=== PATIENT | female | born 1985 | race Caucasian/White ===

== ENCOUNTER 2016-08-01 17:36 | Emergency (ER) | payer BC ==
[~2016-08-01] VITALS: Ht 176.5 cm; Wt 122.0 kg
[~2016-08-01 17:36] MED LIST: ALBUAER19 INH
[2016-08-01 17:42] VITALS: TEMP 36.8; Ht 176.5 cm; Wt 122.0 kg
[2016-08-01] MEDS ORDERED: ALBUT/IPRATROP 3MG/0.5MG NEB 3 ML VIAL INH STA (17:55)
--- NOTE | 2016-08-01 18:41 | DIAGNOSTIC IMAGING REPORT ---
TWO VIEW CHEST CLINICAL HISTORY: Cough and asthma. FINDINGS: PA and lateral chest radiographs are compared to chest x-ray and chest CT dated 12/06/2015. The cardiomediastinal silhouette is unremarkable. The lungs and pleural spaces are clear. There is no pneumothorax. The bony thorax appears intact. IMPRESSION: No active disease in the chest. Electronically signed by: Jose Moulton M.D. 08/01/2016 6:39 PM Dictated Date/Time: 08/01/2016 6:39 PM
[2016-08-01 19:24] VITALS: BP 131/89; PULSE 70; O2SAT 97
[2016-08-01] MEDS ORDERED: AZIT250T5 PO (19:24)
[2016-08-01] MEDS ORDERED: PRED50TA PO (19:24)
--- NOTE | 2016-08-01 19:25 | EMERGENCY ROOM VISIT NOTE ---
ED Visit Note First contact with patient: 17:48 CC: Chest tightness and cough today HISTORY OF PRESENT ILLNESS: Patient is a 30-year-old white female with past medical history significant for asthma who presents to the emergency department for evaluation of tightness and her chest and shortness of breath that began today. She says it with a cold and upper respiratory symptoms including cough, sinus and nasal congestion and a sore throat for almost 2-1/2 weeks. She reports sick coworkers and her daughter is also sick at home. She noted that her chest. High and she felt a little short of breath first thing this morning and she used her albuterol inhaler with good relief. She states that her symptoms returned about 4 hours later and this time the inhaler did not help. She thus presented to the emergency department. She reports a cough productive of clear sputum. She is using Mucinex, Tylenol and multisymptom cold and flu medication as well as vitamins and increasing her fluid intake. She reports that her asthma is generally well controlled, typically only gets exacerbated when she becomes ill. She has never been hospitalized for her asthma, has not been on any steroids recently. She is a smoker. She denies any chest pain. No calf or leg pain or swelling. REVIEW OF SYSTEMS: Review of systems as per HPI. All other systems reviewed were negative. At least 6 systems reviewed. PMH: Electronic medical records are reviewed and summarized as above/below. See Problem List. SOCIAL HISTORY: Patient lives at home with her and daughter. Employed. Smoker. PHYSICAL EXAM: Vital Signs: Reviewed Nurse's notes. Oxygen saturation 99% on room air. MENTAL STATUS: Patient is a well-appearing 30-year-old white female who is awake and alert and in no acute distress. She is seated upright on the gurney. No conversational dyspnea. No increased work of breathing. HEAD: Atraumatic, without temporal or scalp tenderness. EYES: PERRL, EOMI, no discharge or injection. EARS: Tympanic membranes intact, not inflamed, have normal contour. External canals clear. NOSE: Nares patent, turbinates edematous and boggy with clear rhinorrhea. MOUTH: Mucous membranes moist, no lesions, tongue and gums appear normal. THROAT: No pharyngeal injection, exudates, or tonsillar hypertrophy. Airway is patent. NECK: Supple, nontender, no lymphadenopathy. No stridor. HEART: Regular rate and rhythm without murmurs, ectopy, gallops, or rubs. LUNGS: Clear to auscultation and breath sounds equal, no wheezes, rales, or rhonchi. SKIN: Normal. NEUROLOGICAL: Sensory and motor functions grossly intact. Normal gait. EMERGENCY DEPARTMENT COURSE: Patient was given a DuoNeb treatment and prednisone 60 mg orally. Chest x-ray was obtained and was unremarkable. The patient was reassessed and reported that her symptoms had improved with the nebulizer treatment. She has been sick with some upper respiratory symptoms for almost 3 weeks, and now has some objective tightness in her chest. On exam she does not have any increased work of breathing, respiratory distress or wheezing. Vital signs are stable and her oxygen saturation on room air is adequate. She may be experiencing some slight bronchospasm due to the URI and an asthma exacerbation. She is responding nicely to the DuoNeb. Continued supportive care measures were discussed. Given the duration of the illness, I did think antibiotic coverage was indicated and she was given azithromycin 500 mg orally. She was placed in a short course of oral prednisone as well. She is encouraged to continue her inhaler, and to return to the ED for worsening symptoms. Follow up with her PCP if her symptoms are not improving. Differential diagnoses entertained included asthma exacerbation, asthmatic bronchitis, acute bronchitis, pneumonia. I do not suspect pulmonary embolus. TWO VIEW CHEST CLINICAL HISTORY: Cough and asthma. FINDINGS: PA and lateral chest radiographs are compared to chest x-ray and chest CT dated 12/06/2015. The cardiomediastinal silhouette is unremarkable. The lungs and pleural spaces are clear. There is no pneumothorax. The bony thorax appears intact. IMPRESSION: No active disease in the chest. Problem List Medical Problems: (1) Active labor at term Status: Resolved (2) Asthma Status: Chronic (3) Bronchitis Status: Resolved (4) Pneumonia Status: Resolved (5) Status: Resolved (6) Status: Resolved (7) Stomach problems Status: Chronic (8) Subchorionic bleed Status: Resolved (9) Vaginal bleeding in Status: Resolved Current/Historical Medications Scheduled Azithromycin (Zithromax), 250 MG PO DAILY Medroxyprogesterone Acetate (C (Depo-Provera Contraceptiv), 1 DOSE INJ UD Prednisone (Prednisone), 50 MG PO DAILY Scheduled PRN Albuterol Inhaler (Ventolin Inhaler), 2 PUFFS INH UD PRN for Rescue Allergies Coded Allergies: BEE STING (Verified Allergy, Severe, ANAPHYLAXIS, 08/01/16) Cinnamon (Unverified Allergy, Severe, THROAT SWELLING, 08/01/16) Fexofenadine (Verified Allergy, Mild, 08/01/16) Penicillins (Verified Allergy, Mild, 08/01/16) Pseudoephedrine (Verified Allergy, Unknown, ., 08/01/16) Vital Signs Date Time Temp Pulse Resp B/P Pulse Ox O2 Delivery O2 Flow Rate FiO2 08/01/16 19:24 70 16 131/89 97 Room Air 08/01/16 17:42 99 Room Air 08/01/16 17:42 36.8 74 18 139/94 99 Room Air Medications Administered Medications (Trade) Dose Ordered Sig/Bry Route Start Time Stop Time Status Last Admin Dose Admin Albuterol/ Ipratropium (Duoneb) 3 ml NOW STAT INH 08/01/16 17:55 08/01/16 17:57 DC 08/01/16 18:01 3 ML Prednisone (PredniSONE TAB) 60 mg NOW STAT PO 08/01/16 17:55 08/01/16 17:57 DC 08/01/16 18:01 60 MG Azithromycin (Zithromax Tab) 500 mg NOW ONCE PO 08/01/16 19:30 08/01/16 19:31 DC 08/01/16 19:30 500 MG Departure Information Impression Primary Impression: Acute bronchitis Additional Impression: Acute asthma exacerbation Prescriptions Prednisone (Prednisone) 50 Mg Tab 50 MG PO DAILY for 4 Days, #4 TAB Prov: Jyoti Dwyer PA 08/01/16 Azithromycin (ZITHROMAX) 250 Mg Tab 250 MG PO DAILY, #4 TAB Prov: Jyoti Dwyer PA 08/01/16 Referrals Andrew Max MD (PCP) Patient Instructions My [facility] Additional Instructions Albuterol Inhaler: Take 2 puffs every 4 hours for five days, then as needed. Prednisone 50mg: Once daily until the prescription is finished. It is best to take this earlier in the day as some patients note occasional difficulty falling asleep when taken in the late evening. Azithromycin(Zithromax) 250mg: Take one a day for 4 additional days. All antibiotics can cause diarrhea. If this occurs and you feel worse or it does not resolve in 1- 2 days follow up with your doctor or return to the Emergency Department as this could be signs of serious underlying problems. Any medication can cause an allergic reaction, stop the pills immediately and return to the ER for rash, hives, breathing difficulties, or swelling. Ibuprofen(Motrin, Advil) may be used for fever or pain. Use 600mg every six hours as needed. Take with food. Avoid using more than 2400mg in a 24 hour period. Do not use 2400mg per day for more than three consecutive days without physician direction. Prolonged inappropriate use can lead to stomach upset or ulcers. This is available over the counter and typically comes in 200mg tablets. (AND/OR) Acetaminophen(Tylenol) may be used for fever or pain. Use 1000mg every eight hours as needed. Avoid using more than 3000mg in a 24 hour period. This is available over the counter. Read all the package inserts or medication information paperwork provided. If you have any questions or concerns call your primary provider, pharmacist or the ER for assistance. Rest and drink plenty of fluids. Avoid smoke/smoking, fumes, dust, or any triggers in the past that may have affected your breathing. Continue current medications. Return to the ER for chest pain, difficulty breathing, fevers, vomiting, worsening of your condition, or as needed. Follow up with your primary physician this week for a recheck of your current condition. Problem Qualifiers Primary Impression: Acute bronchitis Bronchitis organism: unspecified organism Qualified Codes: J20.9 - Acute bronchitis, unspecified Additional Impression: Acute asthma exacerbation Asthma severity: mild intermittent Qualified Codes: J45.21 - Mild intermittent asthma with (acute) exacerbation
[2016-08-01] MEDS ORDERED: AZITHROMYCIN 250 MG TAB PO ONE (19:30)
== END 2016-08-01 19:35 | disposition home or self-care (01) ==
LOC: C.EDB 17:37 → C.EDD 19:35
DX: J20.9 Acute bronchitis, unspecified (principal); J45.21 Mild intermittent asthma with (acute) exacerbation; F17.210 Nicotine dependence, cigarettes, uncomplicated

== ENCOUNTER 2017-01-20 19:56 | Emergency (ER) | payer BC ==
[~2017-01-20] VITALS: Ht 175.3 cm; Wt 130.0 kg
[2017-01-20 19:59] VITALS: Ht 175.3 cm; Wt 130.0 kg
[2017-01-20] MEDS ORDERED: KETOROLAC TROMETHAMINE 60 MG/2 ML VIAL IM STA (20:23)
[2017-01-20] MEDS ORDERED: HYDROCODONE/ACETAMOPHEN 5/325MG TAB PO ONE (20:30)
[2017-01-20] MEDS ORDERED: DEXAMETHASONE SOD INJ 10 MG/ML VIAL IM ONE (20:30)
[2017-01-20] MEDS ORDERED: MULT-240 PO (20:46)
[2017-01-20] MEDS ORDERED: PRVHFAIN INH (20:46)
--- NOTE | 2017-01-20 21:02 | DIAGNOSTIC IMAGING REPORT ---
L-SPINE MIN 4 VIEWS ROUTINE HISTORY: Pain low back pain COMPARISON: None. FINDINGS: There is no fracture. No subluxation. Disc spaces are preserved. Note is made of sclerotic changes of the inferior sacroiliac joints possibly on the basis of chronic sacroiliitis. IMPRESSION: 1. Degenerative change sacroiliac joints. 2. No acute abnormality lumbar spine The above report was generated using voice recognition software. It may contain grammatical, syntax or spelling errors. Electronically signed by: Bert Browning M.D. 01/20/2017 9:01 PM Dictated Date/Time: 01/20/2017 9:00 PM
[2017-01-20] MEDS ORDERED: MEDR150I IM (21:03)
[2017-01-20] MEDS ORDERED: NORCO 5/325MG HOME PACK PO ONE (21:15)
[2017-01-20 21:30] VITALS: BP 114/71; PULSE 88; TEMP 37; O2SAT 97
--- NOTE | 2017-01-21 00:09 | EMERGENCY ROOM VISIT NOTE ---
ED Visit Note First contact with patient: 20:09 CHIEF COMPLAINT: Low back pain HISTORY OF PRESENT ILLNESS: This 31-year-old female patient presents to the emergency department complaining of pain in the low back which began worsening about 5 hours prior to arrival. The patient states that she was playing outside with her daughter today, laid down on the couch to rest, and when she got up had pain in her low back. The pain was gradual in onset, is now constant and worse with movement. The patient notes the pain as dull and a 6/ 10. The patient has taken nothing for relief of the pain. The patient denies any loss of control of their bowel or bladder functions. There has been no leg numbness or weakness, and no change in sensation. No nausea or vomiting or abdominal pain. No chest pain or shortness of breath. The patient has not had prior back injuries. No dysuria or increased urinary frequency. REVIEW OF SYSTEMS: A review of systems was performed with positives and pertinent negatives listed in the history of present illness. All other systems were reviewed and are negative. ALLERGIES: See EMR MEDICATIONS: See EMR PMH: No pertinent chronic medical disease SOCIAL HISTORY: Lives with family PHYSICAL EXAM: VITALS: Vitals are noted on the nurse's note and reviewed by myself. Vital signs stable. GENERAL: White female, in no acute distress, nondiaphoretic, well-developed well -nourished. SKIN: The skin was without rashes, erythema, edema, or bruising. Capillary refill less than 2 seconds. NECK: Supple without nuchal rigidity. No cervical spine tenderness. No paraspinous muscle tenderness. HEART: Regular rate and rhythm without murmurs gallops or rubs. LUNGS: Clear to auscultation bilaterally without wheezes, rales or rhonchi. ABDOMEN: Positive bowel sounds x 4. Normal tympanic percussion. Soft, nontender, without masses or organomegaly. Rockwell sign negative. MUSCULOSKELETAL: No muscle atrophy, erythema, or edema noted of the back. There is tenderness over the lumbar spinous processes. There is no tenderness over the paraspinous muscles. There is no tenderness over the thoracic spine or paraspinous muscles. There are no muscle spasms present. The patient is slow to move around with maximum tenderness with flexion. Positive bilateral straight leg raise test. NEURO: Patient was alert and oriented to person place and time. Normal sensation to light and sharp touch. Deep tendon reflexes 2+ in the lower extremities. Dorsalis pedis pulse 2+ bilaterally. Strength 5/5 and equal in the bilateral lower extremities. L-SPINE MIN 4 VIEWS ROUTINE HISTORY: Pain low back pain COMPARISON: None. FINDINGS: There is no fracture. No subluxation. Disc spaces are preserved. Note is made of sclerotic changes of the inferior sacroiliac joints possibly on the basis of chronic sacroiliitis. IMPRESSION: 1. Degenerative change sacroiliac joints. 2. No acute abnormality lumbar spine EMERGENCY DEPARTMENT COURSE: Physical exam and history were performed. Nursing notes and EMR were reviewed. The patient appears to have low back pain for the past few hours. She does not have a distinct injury or trauma. Neurologically she is intact. The patient was treated here in the department with 60 mg IM Toradol and 10 mg IM Decadron. She was given oral Vicodin. X-rays were performed and reviewed by myself and radiology without acute fractures or dislocation. She appears to have some chronic sacroiliitis. The patient will be given a home pack of Vicodin. She is to use [id number] NSAIDs and follow-up with her primary care physician for further care and management. She was otherwise invited back to the ER with any new, worsening, or concerning complaints. Problem List Medical Problems: (1) Active labor at term Status: Resolved (2) Asthma Status: Chronic (3) Bronchitis Status: Resolved (4) Pneumonia Status: Resolved (5) Status: Resolved (6) Status: Resolved (7) Stomach problems Status: Chronic (8) Subchorionic bleed Status: Resolved (9) Vaginal bleeding in Status: Resolved Current/Historical Medications Scheduled Medroxyprogesterone Acetate (C (Depo-Provera Contraceptiv), 150 MG IM Q3 MONTHS Multiple Vitamins W/ Minerals (Womens One Daily), 1 TAB PO DAILY Scheduled PRN Albuterol (Ventolin Hfa), 2 PUFFS INH UD PRN for Asthma Symptoms/Rescue Allergies Coded Allergies: BEE STING (Verified Allergy, Severe, ANAPHYLAXIS, 08/01/16) Cinnamon (Unverified Allergy, Severe, THROAT SWELLING, 08/01/16) Fexofenadine (Verified Allergy, Mild, 08/01/16) Penicillins (Verified Allergy, Mild, 08/01/16) Pseudoephedrine (Verified Allergy, Unknown, ., 1/23/17) Vital Signs Date Time Temp Pulse Resp B/P (MAP) Pulse Ox O2 Delivery O2 Flow Rate FiO2 01/20/17 21:30 37.0 88 20 114/71 97 01/20/17 21:29 88 20 114/71 97 Room Air 01/20/17 19:59 37.0 93 20 118/76 97 Room Air Medications Administered Medications (Trade) Dose Ordered Sig/Bry Route Start Time Stop Time Status Last Admin Dose Admin Dexamethasone Sodium Phosphate (Decadron Inj) 10 mg NOW ONCE IM 01/20/17 20:30 01/20/17 20:31 DC 01/20/17 20:37 10 MG Ketorolac Tromethamine (Toradol Inj) 60 mg NOW STAT IM 01/20/17 20:23 01/20/17 20:24 DC 01/20/17 20:37 60 MG Acetaminophen/ Hydrocodone Bitart ([place] 5/325 Tab) 1 tab NOW ONCE PO 01/20/17 20:30 01/20/17 20:31 DC 01/20/17 20:36 1 TAB Acetaminophen/ Hydrocodone Bitart ([place] 5/325mg Home Pack) 1 homepack UD ONCE PO 01/20/17 21:15 01/20/17 21:16 DC 01/20/17 21:25 1 HOMEPACK Departure Information Impression Primary Impression: Low back pain Dispostion Home / Self-Care Condition GOOD Forms HOME CARE DOCUMENTATION FORM, IMPORTANT VISIT INFORMATION Patient Instructions My [facility] Additional Instructions You were seen and evaluated today on an emergency basis only. This is not a substitute for, or an effort to provide, complete comprehensive medical care. It is not possible to recognize and treat all injuries or illnesses in a single emergency department visit. For this reason it is recommended that you followup with your primary care physician next week for ongoing care and evaluation. For baseline pain relief you may alternate ibuprofen and acetaminophen every 4 hours for pain control. Take 600 mg ibuprofen (Advil) and then 4 hours later take 1000 mg acetaminophen (Tylenol). Do not take more than 3000 mg acetaminophen in a single day. [place] (hydrocodone/acetaminophen) 5/325 mg (homepack) every 6 hours as needed for worsening breakthrough pain. Do not drink or drive on [place]. This medication will likely make you tired. Do not take [place] and Tylenol at the same time as both contain acetaminophen. [place] may cause constipation. You may wish to take an [id number] stool softener like Colace if this occurs. You are welcome to return to the emergency department anytime with new, worsening, or concerning symptoms.
== END 2017-01-20 21:30 | disposition home or self-care (01) ==
LOC: C.EDB 19:58 → C.EDD 21:30
DX: M54.5 Low back pain (principal); J45.909 Unspecified asthma, uncomplicated; Z87.01 Personal history of pneumonia (recurrent); Z87.09 Personal history of other diseases of the respiratory system

== ENCOUNTER 2017-09-17 20:01 | Emergency (ER) | payer OTHER ==
[~2017-09-17] VITALS: Ht 177.8 cm; Wt 124.4 kg
[~2017-09-17 20:01] MED LIST changes: -ALBUAER19 INH; +METH4PAK PO
[2017-09-17 20:04] VITALS: TEMP 36.8; Ht 177.8 cm; Wt 124.4 kg
[2017-09-17] MEDS ORDERED: FAMOTIDINE 20MG/5ML IV PUSH IV STA (20:43)
[2017-09-17] MEDS ORDERED: SODIUM CHLORIDE 0.9% 1000ML 1,000 ML IV STA (20:43)
[2017-09-17] MEDS ORDERED: ONDANSETRON INJ 2 MG/ML 2 ML VIAL IV STA (20:43)
[2017-09-17] MEDS ORDERED: MULT-240 PO (20:46)
[2017-09-17] MEDS ORDERED: PRVHFAIN INH (20:46)
--- NOTE | 2017-09-17 20:46 | EMERGENCY ROOM VISIT NOTE ---
History Report prepared by Mihai: Kendall Mccann Under the Supervision of: Flor MossO. First contact with patient: 20:22 Chief Complaint: ILLNESS Stated Complaint: SWOLLEN THROAT,WHEEZING,VOMITING,FEVER History of Present Illness The patient is a 32 year old female who presents to the Emergency Room with complaints of general illness beginning 4 days ago. The patient reports having a cough for several days which developed into vomiting, fever, chills, diarrhea , and a headache on . The patient denies experiencing any diarrhea since yesterday. She is still experiencing fevers, chills, mild nausea, and a sore throat which tastes metallic. The patient denies feeling dizzy or lightheaded, seeing blood in her vomit or in her stool, experiencing difficulty urinating, or experiencing any rashes or sores. 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 She states that she took Tylenol to manage her fever and other symptoms. Source of History: patient Onset: 4 days ago Position: other (global ) Quality: other (illness) Timing: other (Some symptoms improving, others constant ) Associated Symptoms: + fevers, + headache, + sorethroat (metallic taste), + cough, + nausea, + vomiting, + diarrhea (none since yesterday), No rash Review of Systems See HPI for pertinent positives & negatives. A total of 10 systems reviewed and were otherwise negative. Past Medical & Surgical Medical Problems: (1) Active labor at term (2) Asthma (3) Bronchitis (4) Pneumonia (5) (6) (7) Stomach problems (8) Subchorionic bleed (9) Vaginal bleeding in Surgical Problems: (1) No pertinent past surgical history Family History Cancer Kidney disease Kidney stones Social History Smoking Status: Current Every Day Smoker Alcohol Use: none Marital Status: Housing Status: lives with family Occupation Status: employed Current/Historical Medications Scheduled Medroxyprogesterone Acetate (C (Depo-Provera Contraceptiv), 150 MG IM Q3 MONTHS Multiple Vitamins W/ Minerals (Womens One Daily), 1 TAB PO DAILY Scheduled PRN Albuterol (Ventolin Hfa), 2 PUFFS INH UD PRN for Asthma Symptoms/Rescue Allergies Coded Allergies: BEE STING (Verified Allergy, Severe, ANAPHYLAXIS, 08/01/16) Cinnamon (Unverified Allergy, Severe, THROAT SWELLING, 08/01/16) Fexofenadine (Verified Allergy, Mild, 08/01/16) Penicillins (Verified Allergy, Mild, 08/01/16) Pseudoephedrine (Verified Allergy, Unknown, ., 08/01/16) Physical Exam Vital Signs Date Time Temp Pulse Resp B/P (MAP) Pulse Ox O2 Delivery O2 Flow Rate FiO2 09/17/17 23:55 80 18 117/85 96 09/17/17 22:44 82 18 124/81 98 Room Air 09/17/17 20:04 36.8 91 20 138/95 97 Room Air Physical Exam GENERAL: alert, ill-appearing, well nourished, no distress, non-toxic EYE EXAM: normal conjunctiva, PERRL and EOM's grossly intact OROPHARYNX: no exudate, no erythema, lips, buccal mucosa, and tongue normal and mucous membranes are DRY NECK: supple, no nuchal rigidity, no adenopathy, non-tender LUNGS: Clear to auscultation. Normal chest wall mechanics HEART: no murmurs, S1 normal and S2 normal ABDOMEN: abdomen soft, non-tender, normo-active bowel sounds, no masses, no rebound or guarding. BACK: Back is symmetrical on inspection and there is no deformity, no midline tenderness, no CVA tenderness. SKIN: no rashes and no bruising UPPER EXTREMITIES: upper extremities are grossly normal. LOWER EXTREMITIES: No pitting edema. NEURO EXAM: Normal sensorium, cranial nerves II-XII [grossly] intact, normal speech, no [gross] weakness of arms, no [gross] weakness of legs. [No drift. Finger to nose intact. Gross sensation intact.] Medical Decision & Procedures Laboratory Results 09/17/17 20:58 Red Blood Count 4.43, Mean Corpuscular Volume 94.1, Mean Corpuscular Hemoglobin 33.4, Mean Corpuscular Hemoglobin Concent 35.5, Mean Platelet Volume 9.9, Neutrophils (%) (Auto) 49.2, Lymphocytes (%) (Auto) 42.1, Monocytes (%) (Auto) 7.0, Eosinophils (%) (Auto) 1.2, Basophils (%) (Auto) 0.4, Neutrophils # (Auto) 4.71, Lymphocytes # (Auto) 4.02, Monocytes # (Auto) 0.67, Eosinophils # (Auto) 0.11, Basophils # (Auto) 0.04 09/17/17 20:58 Test 09/17/17 20:58 09/17/17 21:09 White Blood Count 9.56 K/uL (4.8-10.8) Red Blood Count 4.43 M/uL (4.2-5.4) Hemoglobin 14.8 g/dL (12.0-16.0) Hematocrit 41.7 % (37-47) Mean Corpuscular Volume 94.1 fL (80-100) Mean Corpuscular Hemoglobin 33.4 pg (25-34) Mean Corpuscular Hemoglobin Concent 35.5 g/dl (32-36) Platelet Count 309 K/uL (130-400) Mean Platelet Volume 9.9 fL (7.4-10.4) Neutrophils (%) (Auto) 49.2 % Lymphocytes (%) (Auto) 42.1 % Monocytes (%) (Auto) 7.0 % Eosinophils (%) (Auto) 1.2 % Basophils (%) (Auto) 0.4 % Neutrophils # (Auto) 4.71 K/uL (1.4-6.5) Lymphocytes # (Auto) 4.02 K/uL (1.2-3.4) Monocytes # (Auto) 0.67 K/uL (0.11-0.59) Eosinophils # (Auto) 0.11 K/uL (0-0.5) Basophils # (Auto) 0.04 K/uL (0-0.2) RDW Standard Deviation 42.6 fL (36.4-46.3) RDW Coefficient of Variation 12.4 % (11.5-14.5) Immature Granulocyte % (Auto) 0.1 % Immature Granulocyte # (Auto) 0.01 K/uL (0.00-0.02) Anion Gap 9.0 mmol/L (3-11) Est Creatinine Clear Calc Drug Dose 115.8 ml/min Estimated GFR () 86.3 Estimated GFR (Non- 74.5 BUN/Creatinine Ratio 14.4 (10-20) Calcium Level 9.4 mg/dl (8.5-10.1) Magnesium Level 2.1 mg/dl (1.8-2.4) Total Bilirubin 0.2 mg/dl (0.2-1) Aspartate Amino Transf (AST/SGOT) 17 U/L (15-37) Alanine Aminotransferase (ALT/SGPT) 26 U/L (12-78) Alkaline Phosphatase 89 U/L (45-117) Total Protein 7.8 gm/dl (6.4-8.2) Albumin 3.9 gm/dl (3.4-5.0) Globulin 3.9 gm/dl (2.5-4.0) Albumin/Globulin Ratio 1.0 (0.9-2) Lipase 105 U/L (73-393) Human Chorionic Gonadotropin, Qual NEG (NEG) Influenza Type A Antigen Neg for Influ A (NEG) Influenza Type B Antigen Neg for Influ B (NEG) Laboratory results per my review. Medications Administered Medications (Trade) Dose Ordered Sig/Bry Route Start Time Stop Time Status Last Admin Dose Admin Sodium Chloride 1,000 ml @ 999 mls/hr Q1H1M STAT IV 09/17/17 20:43 09/17/17 21:43 DC 09/17/17 21:06 999 MLS/HR Ondansetron HCl (Zofran Inj) 4 mg NOW STAT IV 09/17/17 20:43 09/17/17 20:45 DC 09/17/17 21:05 4 MG Famotidine (Pepcid 20mg Iv Push) 20 mg ONE STAT IV 09/17/17 20:43 09/17/17 20:45 DC 09/17/17 21:04 20 MG Al Hydroxide/Mg Hydroxide (Maalox Susp) 30 ml STK-MED ONCE .ROUTE 09/17/17 22:56 09/17/17 22:57 DC 09/17/17 22:59 30 ML Lidocaine HCl (Viscous Lidocaine 2% Soln) 20 ml STK-MED ONCE .ROUTE 09/17/17 22:56 09/17/17 22:57 DC 09/17/17 22:59 10 ML Ondansetron HCl (ZOFRAN ODT 4MG Home Pack) 1 homepack UD ONCE PO 09/17/17 23:45 09/17/17 23:46 DC 09/17/17 23:52 1 HOMEPACK ECG Per My Interpretation Indication: other (Electrolyte Abnormalities) Rate (beats per minute): 73 Rhythm: normal sinus Findings: no acute ischemic change, no ectopy, other (Normal axis, normal intervals ) ED Course 2038: The patient was evaluated in room B5. A complete history and physical exam was performed. 2042: Ordered Famotidine 20 mg IV, Zofran Inj 4mg IV, and Sodium Chloride 1000 ml @ 999 mls/hr IV. 2144: I reevaluated the patient. She is feeling better and will be discharged after she is finished with her IV liter bag. 2241: Ordered GI Cocktail 24ml PO 2256: Ordered Lidocaine HCL 20ml and Maalox Susp 30ml 2311: I re-evaluated the patient. She feels much better after GI Cocktail. Upon reevaluation, the patient is feeling better. I discussed the findings and the treatment plan with the patient. She verbalizes agreement and understanding. She was discharged home. 5: Ordered Ondansetron HCL 1 homepack PO Medical Decision Differential diagnosis: Etiologies such as viral syndrome, otitis, pharyngitis, pneumonia, influenza, meningitis, urinary tract infection, sepsis, bacteremia, as well as others were entertained. Patient well-appearing here despite complaints, vital signs stable. Patient felt improved following IV fluids and medications as able to tolerate p.o. without any residual pain. Patient never had difficulty breathing or stridor, believe her symptoms of sore throat metallic taste are likely due to GERD-like symptoms from recurrent vomiting recently. Patient's labs and imaging otherwise reassuring, and vital signs stable throughout. Patient did not have any recurrent vomiting or diarrhea here. No apparent trouble breathing and patient never hypoxic. No physical exam findings to suggest strep throat given complaints of pain. Doubt bacteremia/sepsis. Likely patient with viral syndrome given exposures at daycare. Patient otherwise not appear compromised and I feel the risk for additional occult infectious etiology. Discussed with patient symptoms to watch and return for, and patient given Zofran to go home with. Patient verbalized understanding all this and was agreeable with plan. Medication Reconcilliation Current Medication List: was personally reviewed by me Blood Pressure Screening Patient's blood pressure: Elevated blood pressure Blood pressure disposition: Elevated BP felt to be situational Impression Primary Impression: Dehydration Additional Impressions: Nausea and vomiting Diarrhea URI (upper respiratory infection) Scribe Attestation The scribe's documentation has been prepared under my direction and personally reviewed by me in its entirety. I confirm that the note above accurately reflects all work, treatment, procedures, and medical decision making performed by me. Departure Information Dispostion Home / Self-Care Referrals Andrew Max MD (PCP) Forms HOME CARE DOCUMENTATION FORM, IMPORTANT VISIT INFORMATION, WORK / SCHOOL INSTRUCTIONS Patient Instructions My [facility] Additional Instructions Please sip clear liquids and frequent intervals to stay well-hydrated. You may use the nausea medication as needed. If you have any worsening symptoms or new concerns, please return the emergency room. Problem Qualifiers Additional Impressions: Nausea and vomiting Vomiting type: unspecified Vomiting Intractability: non-intractable Qualified Codes: R11.2 - Nausea with vomiting, unspecified Diarrhea Diarrhea type: unspecified type Qualified Codes: R19.7 - Diarrhea, unspecified URI (upper respiratory infection) URI type: unspecified URI Qualified Codes: J06.9 - Acute upper respiratory infection, unspecified
[2017-09-17] MEDS ORDERED: MEDR150I IM (21:03)
[2017-09-17 21:12] LABS: BASO % 0.4 %; BASO ABS # 0.04 K/uL (0-0.2); EOS % 1.2 %; EOS ABS # 0.11 K/uL (0-0.5); HEMATOCRIT 41.7 % (37-47); HEMOGLOBIN 14.8 g/dL (12.0-16.0); IG# 0.01 K/uL (0.00-0.02); LYMPH % 42.1 %; LYMPH ABS # 4.02 K/uL (1.2-3.4); MEAN CELL VOLUME 94.1 fL (80-100); MEAN CORPUSCULAR HEMOGLOBIN 33.4 pg (25-34); MEAN CORPUSCULAR HGB CONC 35.5 g/dl (32-36); MEAN PLATELET VOLUME 9.9 fL (7.4-10.4); MONO ABS # 0.67 K/uL (0.11-0.59); NEUT % 49.2 %; NEUT ABS # 4.71 K/uL (1.4-6.5); PLATELET COUNT 309 K/uL (130-400); RED CELL DISTRIBUTION WIDTH CV 12.4 % (11.5-14.5); RED CELL DISTRIBUTION WIDTH SD 42.6 fL (36.4-46.3); WHITE BLOOD COUNT 9.56 K/uL (4.8-10.8)
[2017-09-17 21:28] LABS: ALBUMIN 3.9 gm/dl (3.4-5.0); CALCIUM 9.4 mg/dl (8.5-10.1); POTASSIUM 3.6 mmol/L (3.5-5.1)
[2017-09-17 21:31] LABS: TOTAL PROTEIN 7.8 gm/dl (6.4-8.2)
--- NOTE | 2017-09-17 21:34 | DIAGNOSTIC IMAGING REPORT ---
ABDOMEN 2VIEW W/PA CHEST RTN CLINICAL HISTORY: Nausea, vomiting, diarrhea COMPARISON STUDY: 06/09/2017 FINDINGS: The erect chest reveals no evidence of free air. There is no evidence of focal pulmonary consolidation.] Erect and supine views of the abdomen reveal no abnormally dilated loops of large or small bowel. There are no transition zone to indicate bowel obstruction. Sclerotic changes are present within the SI joints. IMPRESSION: No evidence of bowel obstruction. No evidence of free air. Electronically signed by: Herve Colindres M.D. 09/17/2017 9:33 PM Dictated Date/Time: 09/17/2017 9:32 PM
[2017-09-17 21:57] LABS: INFLUENZA B ANTIGEN Neg for Influ B (NEG)
[2017-09-17] MEDS ORDERED: GI COCKTAIL PO STA (22:42)
[2017-09-17] MEDS ORDERED: LIDOCAINE HCL 2% VISC SOLN 20 ML UDC ONE (22:56)
[2017-09-17] MEDS ORDERED: ALUMINUM/MAGNESIUM SUSP 30 ML UDC ONE (22:56)
[2017-09-17] MEDS ORDERED: ONDANSETRON HOME PACK 4MG OD TAB PO ONE (23:45)
[2017-09-17 23:55] VITALS: BP 117/85; PULSE 80; O2SAT 96
== END 2017-09-17 23:55 | disposition home or self-care (01) ==
LOC: C.EDB 20:02
DX: E86.0 Dehydration (principal); R11.2 Nausea with vomiting, unspecified; R19.7 Diarrhea, unspecified; J06.9 Acute upper respiratory infection, unspecified; J45.909 Unspecified asthma, uncomplicated; F17.200 Nicotine dependence, unspecified, uncomplicated; Z79.3 Long term (current) use of hormonal contraceptives; Z88.1 Allergy status to other antibiotic agents; Z91.018 Allergy to other foods; Z91.030 Bee allergy status; Z88.8 Allergy status to other drugs, medicaments and biological substances

== ENCOUNTER 2023-10-18 00:40 | Observation (INO) ==
[2023-10-18 02:04] LABS: Appearance Urine Clear (Clear); Bilirubin Urine Negative (Negative); Blood Urine Negative (Negative); Color Urine Yellow; Glucose Urine UA Negative (Negative); Ketones Urine 2+ (Negative); Leukocyte Esterase Urine Negative (Negative); Nitrite Urine Negative (Negative); Protein Urine Negative (Negative); Specific Gravity Urine 1.009 (1.000-1.030); Urobilinogen Urine Negative (Negative); pH Urine 5.5 (4.5-7.5)
[2023-10-18 02:09] LABS: Albumin Globulin Ratio 1.6 (0.9-2); Albumin Level 4.9 gm/dl (3.4-5.0); BUN Creatinine Ratio 14.6 (10-20); Bilirubin,Total 0.7 mg/dl (0.2-1.0); Calcium 9.7 mg/dl (8.6-10.3); Creatinine Clr Calc Pharmacy 131.9 ml/min; Est GFR (African American) 105.2 ml/min; Est GFR (Non-African American) 90.8 ml/min; Globulin 3.1 gm/dl (2.5-4.0); Potassium 3.6 mmol/L (3.5-5.1)
[2023-10-18 02:10] LABS: Basophils # (auto) 0.07 K/uL (0.00-0.20); Basophils % (auto) 0.6 %; Eosinophils # (auto) 0.09 K/uL (0.00-0.50); Eosinophils % (auto) 0.7 %; Hematocrit (blood only) 43.4 % (37.0-47.0); Hemoglobin 15.2 g/dl (12.0-16.0); Immature Granulocytes # (auto) 0.05 K/uL (0.01-0.20); Immature Granulocytes % (auto) 0.4 %; Lymphocytes # (auto) 3.12 K/uL (1.20-3.40); Lymphocytes % (auto) 24.5 %; Mean Corpuscular Hemoglobin 32.3 pg (25.0-34.0); Mean Corpuscular Volume 92.1 fL (80.0-100.0); Mean Platelet Volume 9.9 fL (9.4-12.4); Monocytes # (auto) 1.11 K/uL (0.11-0.59); Monocytes % (auto) 8.7 %; Neutrophils # (auto) 8.27 K/uL (1.40-6.50); Neutrophils % (auto) 65.1 %; Platelet Count 354 K/uL (130-400); RDW Standard Deviation 40.8 fL (36.4-46.3); Red Blood Count 4.71 M/uL (4.20-5.40); White Blood Count 12.71 K/ul (4.8-10.8)
[2023-10-18 02:22] LABS: Pregnancy Test, Serum Negative (Negative)
--- NOTE | 2023-10-18 05:08 | Ultrasound Report ---
Exam(s): US GALLBLADDER EXAM: US Abdomen Limited, Gallbladder CLINICAL HISTORY: Reason for exam: RUQ pain. TECHNIQUE: Real-time ultrasound of the right upper quadrant with image documentation. COMPARISON: No relevant prior studies available. FINDINGS: Liver: Fatty liver. Gallbladder: There are multiple gallstones. Gallbladder wall thickness measures 3.8 mm. Positive ultrasound Rockwell sign. Common bile duct: CBD caliber measures up to 9.3 mm in diameter. Pancreas: No pancreatic ductal dilation Right kidney measures 11.5 cm in length. IMPRESSION: 1. Cholelithiasis with gallbladder wall thickening and positive ultrasound Rockwell sign. These findings are suggestive of acute cholecystitis. 2. Prominent CBD caliber which can be further assessed on MRCP study Electronically signed by: Ronnie Choi MD 10/18/23 05:07 AM
--- NOTE | 2023-10-18 07:54 | Emergency Department Note ---
Impression & Plan Acute calculous cholecystitis ED Provider Note NAME: NAVEEN CROWELL AGE: 38 SEX: Female INFORMANT: Patient ED PROVIDER(S): Salvador Young MD CHIEF COMPLAINT: abdominal pain PLAN: Disposition: admitted Outpatient prescription management: none Referral: none MEDICAL DECISION MAKING: Presented with HPI below. RUQ pain. Declined analgesia. Leukocytosis on CBC. Imaging consistent with cholecystitis. Discussed with patient. I gave my usual and customary discussion regarding this issue. Consulted with General Surgery. Patient evaluated by Ayse Bueno PA-C and admitted for further management. Care/management discussed with: none Level of care consideration(s): After review of the information above and other included data, I feel the patient requires escalation of care to admission. Triage Nursing notes: reviewed and agree them. Vital Signs: reviewed and remarkable for no significant abnormalities Additional History obtained from: none Chronic Medical/Social Conditions affecting care: none Prior/ Outside/ External records reviewed: none Differential Diagnosis: Etiologies such as gastroenteritis, food borne illness, infections, appendicitis, diverticulitis, inflammatory bowel disease, GI bleed, biliary pathology, as well as others were entertained. Diagnostics, independently interpreted by me: ECG: none Cardiac Monitoring: none Medical decision rules: none Imaging studies: I refer you to the EMR for further details. HPI: 38 year old Female arrives for evaluation of abdominal pain. This started 3 days ago and is persisting. The patient also notes the following associated symptoms, slight fever. The patient has found no relieving factors. Current pain is rated as 4/10. Pt denies LOC, headache, fevers, chills, diaphoresis, visual changes, neck pain, chest pain, breathing difficulties, nausea, vomiting, back pain, melena, hematochezia, urinary symptoms, weakness, rash, or other complaints. . PAST MEDICAL HISTORY: See Below, PAST SURGICAL HISTORY: See Below, SOCIAL HISTORY: See Below, smoker HOME MEDICATIONS: See Below ALLERGIES: See Below VITALS: See Below PHYSICAL EXAMINATION: GENERAL: Awake, alert, mildly uncomfortable-appearing, in no distress HENT: Normocephalic, atraumatic. Oropharynx unremarkable. EYES: Normal conjunctiva. Sclera non-icteric. NECK: Inspection normal. Non-tender. Supple. No nuchal rigidity. FROM. No masses. RESPIRATORY: Clear to auscultation. No wheezes. No rales. Normal respiratory effort. CARDIAC: Normal rate. Normal rhythm. No murmurs. No rubs. Extremities warm and well perfused. Pulses equal. No JVD. GI: Soft, non-distended. RUQ tenderness to palpation. No rebound or guarding. No masses. RECTAL: Deferred. MUSCULOSKELETAL: Atraumatic. Chest examination reveals no tenderness. The back is symmetrical on inspection without obvious abnormality. There is no CVA tenderness to palpation. No joint edema. LOWER EXTREMITIES: Calves are equal size bilaterally and non-tender. No edema. No discoloration. NEURO: Normal sensorium. No sensory or motor deficits noted. SKIN: No rash or jaundice noted. PROCEDURES: none CRITICAL CARE: none OBSERVATION NOTE: none Past Med/Surg History Medical History (Updated 10/19/23 @ 22:37 by Salvador Young MD) Prediabetes Asthma Surgical History (Updated 10/18/23 @ 11:42 by Radha Cramer RN) [place] teeth removed No pertinent past surgical history Social History Smoking Status: Current every day smoker Tobacco Type: Cigarettes Cigarettes Per Day: pack per day; Second Hand Exposure: Yes; Do You Dip or Chew Tobacco: No; Hx Alcohol Use: No Hx Substance Use: No Preferred Language: Venezuelan Communication Ability: Effective Sanipractic Physician Required: No Beliefs That Will Affect Care: Anabaptism Current Living Situation: Alone Feels Safe at Home: Yes Safety Concerns: Feels Safe At This Time Allergies Allergies Allergy/AdvReac Type Severity Reaction Status Date / Time bee venom protein (honey bee) Allergy Severe ANAPHYLAXIS Verified 10/18/23 01:34 cinnamon Allergy Severe THROAT Unverified 10/18/23 01:34 SWELLING fexofenadine Allergy Mild Unknown Verified 10/18/23 01:34 Penicillins Allergy Mild Rash Verified 10/18/23 12:00 pseudoephedrine Allergy Unknown . Verified 10/18/23 01:34 Home Meds Home Medications Medication Instructions Recorded Confirmed multivitamin 1 tab PO DAILY 08/23/20 10/18/23 escitalopram oxalate 10 mg tablet 10 mg PO QAM 10/18/23 10/18/23 Results & Data (ED) Vital Signs Vital Signs - 24 hr 10/18/23 00:48 10/18/23 03:36 10/18/23 03:41 Temperature 36.8 C Temperature Source Temporal Artery Scan Pulse Rate 92 H 71 Pulse Rate [Apical] 73 Respiratory Rate 18 18 Respiratory Effort / Characteristics Non-Labored Spontaneous Non-Labored Spontaneous Respiratory Depth Normal Normal Respiratory Pattern Regular Blood Pressure 135/99 Blood Pressure [Right Arm] 137/89 Blood Pressure Mean 111 Blood Pressure Mean [Right Arm] 105 Blood Pressure Position Sitting Pulse Oximetry 97 98 Oxygen Delivery Method Room Air Room Air Sepsis Recent Fever Within 48 Hours No Sepsis New/Unexplained Change in Mental Status N/A Sepsis Action Taken by Nursing No Action Required Laboratory Data 10/19/23 09:03 10/19/23 09:03 Lab Results 10/18/23 10/18/23 Range/Units 01:35 01:40 WBC 12.71 H (4.8-10.8) K/ul RBC 4.71 (4.20-5.40) M/uL Hgb 15.2 (12.0-16.0) g/dl Hct 43.4 (37.0-47.0) % MCV 92.1 (80.0-100.0) fL MCH 32.3 (25.0-34.0) pg MCHC 35.0 (32.0-36.0) g/dL RDW Std Deviation 40.8 (36.4-46.3) fL RDW Coeff of Pauline 12.0 (11.5-14.5) % Plt Count 354 (130-400) K/uL MPV 9.9 (9.4-12.4) fL Immature Gran % (Auto) 0.4 % Neut % (Auto) 65.1 % Lymph % (Auto) 24.5 % Payne % (Auto) 8.7 % Eos % (Auto) 0.7 % Baso % (Auto) 0.6 % Neut # (Auto) 8.27 H (1.40-6.50) K/uL Lymph # (Auto) 3.12 (1.20-3.40) K/uL Payne # (Auto) 1.11 H (0.11-0.59) K/uL Eos # (Auto) 0.09 (0.00-0.50) K/uL Baso # (Auto) 0.07 (0.00-0.20) K/uL Immature Gran # (Auto) 0.05 (0.01-0.20) K/uL Sodium 135 L (136-145) mmol/L Potassium 3.6 (3.5-5.1) mmol/L Chloride 103 (98-107) mmol/L Carbon Dioxide 23 (21-32) mmol/L Anion Gap 9 (3-11) BUN 12 (6-23) mg/dl Creatinine 0.82 (0.6-1.2) mg/dl Est Cr Clr Drug Dosing 131.9 ml/min Est GFR ( Amer) 105.2 ml/min Est GFR (Non-Af Amer) 90.8 ml/min BUN/Creatinine Ratio 14.6 (10-20) Glucose 102 H (70-99(Fasting)) mg/dl Calcium 9.7 (8.6-10.3) mg/dl Total Bilirubin 0.7 (0.2-1.0) mg/dl AST 22 (13-39) U/L ALT 19 (7-52) U/L Alkaline Phosphatase 64 (34-104) U/L Total Protein 8.0 (6.0-8.3) gm/dl Albumin 4.9 (3.4-5.0) gm/dl Globulin 3.1 (2.5-4.0) gm/dl Albumin/Globulin Ratio 1.6 (0.9-2) Lipase 6 L (11-82) U/L HCG, Qual Negative (Negative) Urine Color Yellow Urine Appearance Clear (Clear) Urine pH 5.5 (4.5-7.5) Ur Specific [place] 1.009 (1.000-1.030) Urine Protein Negative (Negative) Urine Glucose (UA) Negative (Negative) Urine Ketones 2+ H (Negative) Urine Blood Negative (Negative) Urine Nitrite Negative (Negative) Urine Bilirubin Negative (Negative) Urine Urobilinogen Negative (Negative) Ur Leukocyte Esterase Negative (Negative) Administered Medications Enoxaparin Sodium (Enoxaparin Inj 40 Mg/0.4 Ml Syr) 40 mg SQ Q24H DOROTHY Stop: 11/18/23 06:59 Last Admin: 10/19/23 06:05 Dose: 40 mg Documented By: [facility] Ondansetron HCl (Ondansetron Inj 2 Mg/Ml 2 Ml Vial) 4 mg IV Q6H PRN PRN Reason: Nausea Stop: 11/18/23 13:15 Last Admin: 10/19/23 15:51 Dose: 4 mg Documented By: VALDO Oxycodone/Acetaminophen (Oxycodone/Acetaminophen 5mg/325mg Tab) 1 tab PO Q4H PRN PRN Reason: Moderate Pain (Scale 4, 5, 6) Stop: 11/02/23 13:15 Last Admin: 10/19/23 18:36 Dose: 1 tab Documented By: Admin: 10/19/23 13:33 Dose: 1 tab Documented By: HERNANDEZ Discontinued Medications Bupivacaine HCl/Epinephrine Bitart (Bupivacaine/Epinephrine 0.25% 1:200,000 30 Ml Vial) Confirm Administered Dose 30 ml .ROUTE .STK-MED ONE Stop: 10/18/23 11:25 Last Admin: 10/18/23 16:16 Dose: Not Given Documented By: MURPHY Fentanyl Citrate (Fentanyl Citrate Pf 100 Mcg/2 Ml Vial) 25 mcg IV Q5M PRN PRN Reason: PACU Use Only-Pain Stop: 10/18/23 19:03 Last Admin: 10/18/23 15:04 Dose: 25 mcg Documented By: Admin: 10/18/23 14:59 Dose: 25 mcg Documented By: Admin: 10/18/23 14:54 Dose: 25 mcg Documented By: Admin: 10/18/23 14:49 Dose: 25 mcg Documented By: ADELA Promethazine HCl 12.5 mg/ (Sodium Chloride) 50.5 mls @ 204 mls/hr IV Q6H PRN PRN Reason: Nausea And Vomiting Stop: 11/17/23 09:43 Last Infusion: 10/19/23 06:53 Dose: Infused Documented By: Admin: 10/19/23 06:33 Dose: 204 mls/hr Documented By: DANIEL Lactated Ringer's (Lr) 1,000 mls @ 125 mls/hr IV .Q8H DOROTHY Stop: 11/17/23 09:44 Last Admin: 10/19/23 12:49 Dose: Not Given Documented By: Infusion: 10/19/23 12:49 Dose: Infused Documented By: Admin: 10/19/23 04:29 Dose: 125 mls/hr Documented By: Infusion: 10/19/23 04:29 Dose: Infused Documented By: Admin: 10/18/23 20:29 Dose: 125 mls/hr Documented By: Infusion: 10/18/23 18:53 Dose: Infused Documented By: Admin: 10/18/23 10:53 Dose: 125 mls/hr Documented By: SYL Cefoxitin Sodium 2,000 mg/ (Dextrose) 50 mls @ 100 mls/hr IV NOW STA; Protocol Stop: 10/18/23 12:18 Last Infusion: 10/18/23 16:16 Dose: Infused Documented By: Admin: 10/18/23 11:58 Dose: 100 mls/hr Documented By: CHARLIE Ioversol (Ioversol 50ml) 50 ml IV ONCE ONE Stop: 10/18/23 13:05 Last Admin: 10/18/23 13:28 Dose: 20 ml Documented By: NATALI Ketorolac Tromethamine (Ketorolac 30 Mg/Ml Vial) 30 mg IV Q6H PRN PRN Reason: Pain & Pre PT Stop: 10/23/23 16:22 Last Admin: 10/18/23 16:35 Dose: 30 mg Documented By: MURPHY Lorazepam (Lorazepam 1 Mg/1 Ml Syr Ed Inj Use) 1 mg IV NOW STA Stop: 10/18/23 09:51 Last Admin: 10/18/23 10:16 Dose: 1 mg Documented By: HAMLET Ondansetron HCl (Ondansetron Inj 2 Mg/Ml 2 Ml Vial) 4 mg IV Q4H PRN PRN Reason: Nausea And Vomiting Stop: 11/17/23 09:43 Last Admin: 10/19/23 04:34 Dose: 4 mg Documented By: Admin: 10/18/23 20:46 Dose: 4 mg Documented By: DANIEL Oxycodone/Acetaminophen (Oxycodone/Acetaminophen 5mg/325mg Tab) 1 tab PO Q4H PRN PRN Reason: MODERATE Pain (4,5,6) & Pre PT Stop: 11/01/23 16:22 Last Admin: 10/19/23 04:34 Dose: 1 tab Documented By: Admin: 10/18/23 20:47 Dose: 1 tab Documented By: DANIEL Imaging Data Radiologist's Impression: Gallbladder Ultrasound 10/18/23 02:03 Exam(s): US GALLBLADDER EXAM: US Abdomen Limited, Gallbladder CLINICAL HISTORY: Reason for exam: RUQ pain. TECHNIQUE: Real-time ultrasound of the right upper quadrant with image documentation. COMPARISON: No relevant prior studies available. FINDINGS: Liver: Fatty liver. Gallbladder: There are multiple gallstones. Gallbladder wall thickness measures 3.8 mm. Positive ultrasound Rockwell sign. Common bile duct: CBD caliber measures up to 9.3 mm in diameter. Pancreas: No pancreatic ductal dilation Right kidney measures 11.5 cm in length. IMPRESSION: 1. Cholelithiasis with gallbladder wall thickening and positive ultrasound Rockwell sign. These findings are suggestive of acute cholecystitis. 2. Prominent CBD caliber which can be further assessed on MRCP study Electronically signed by: Ronnie Choi MD 10/18/23 05:07 AM Discharge Plan Visit Data Chief Complaint: Abdominal Pain Stated Complaint: CHILLS AND PAIN TIGHTNESS, NO APETITE ED Provider: Salvador Young Discharge Problem: Acute calculous cholecystitis Patient Disposition: Admitted As Inpatient Discharge Instructions Interventions: ED Discharge Assessment Last Done: 10/18/23 10:20
--- NOTE | 2023-10-18 09:34 | History & Physical Report ---
Date of Service October 18, 2023 Assessment & Plan (1) Acute calculous cholecystitis: Plan: 38 year old female with sudden onset of RUQ/epigastric abdominal pain on Monday with associated anorexia and nausea and low grade fever. Pain has been off and on since. Some diarrhea present. Ultrasound showing acute calculous cholecystitis. Mild leukocytosis of 12,000, t. bili and lfts and lipase wnl. Dilated cbd on ultrasound. RUQ tenderness and rockwell sign on examination. Plan: Discussed with patient her imaging and examination findings consistent with acute calculous cholecystitis. Discussed indication for cholecystectomy. Discussed procedure, risks, expected recovery and restrictions. She is very anxious about surgical intervention but also does not want to continue to have pain or complications in future if she were to decide against surgery. She elected to procedure with laparoscopic cholecystectomy. Informed consent will be obtained. Keep npo. IV fluids. Pain management and antiemetics as needed. Will give dose of Ativan due to anxiety. Discussed with Dr. De Guzman who agrees with above and will evaluate patient preoperatively. History of Present Illness Chief Complaint: RUQ abdominal pain Primary Care Provider: Andrew Max MD Hui is a 38 year-old female with history of prediabetes previously on Ozempic who presented to emergency department with right upper and epigastric abdominal giuseppe with associated nausea and diarrhea. Pain started Monday afternoon and was sudden and then resolved but appetite is was low and was unable to eat much due to nausea. Intermittent pain. Pain about 4-5 /10 upon presentation and not improving. Had fever Monday evening of 101 but no chills, sweats, vomiting, chest pain, shortness of breath, difficulty urinating, blood in urine, no blood in stools. No history of gallbladder problems in past. No prior abdominal surgeries. Currently states pain is in the right upper abdomen 3-4/10. Has not had any pain medication since being in ED. Very anxious about surgery. Allergies Allergy/AdvReac Type Severity Reaction Status Date / Time bee venom protein (honey bee) Allergy Severe ANAPHYLAXIS Verified 10/18/23 01:34 cinnamon Allergy Severe THROAT Unverified 10/18/23 01:34 SWELLING fexofenadine Allergy Mild Unknown Verified 10/18/23 01:34 Penicillins Allergy Mild Unknown Verified 10/18/23 01:34 pseudoephedrine Allergy Unknown . Verified 10/18/23 01:34 Home Medications Medication Instructions Recorded Confirmed Type multivitamin 1 tab PO DAILY 08/23/20 10/18/23 History escitalopram oxalate 10 mg tablet 10 mg PO QAM 10/18/23 10/18/23 History Past Med/Surg History Medical History Prediabetes Asthma Surgical History No pertinent past surgical history Social History Smoking Status: Current every day smoker Tobacco Type: Cigarettes Cigarettes Per Day: pack per day; Second Hand Exposure: Yes; Do You Dip or Chew Tobacco: No; Hx Alcohol Use: No Hx Substance Use: No Preferred Language: Venezuelan Communication Ability: Effective Housekeeping Attendant Required: No Beliefs That Will Affect Care: Sabianism Current Living Situation: Alone Feels Safe at Home: Yes Safety Concerns: Feels Safe At This Time Physical Exam Constitutional: WD/WN, vitals as above + obese, cooperative and co mfortable; no acute distress, not ill appearing and not diaphoretic Respiratory: normal respiratory effort, lungs clear to auscultation Cardiovascular: RRR, no murmur, no edema Gastrointestinal (Abdomen): Inspection/Auscultation: abdomen normal to inspection; abdomen not distended Percussion/Palpation: + abdomen tender (RUQ on deep mild to deep palpation, positive murphys) and abdomen soft; no guarding, abdomen not rigid and abdomen not firm Skin: no rashes, warm and dry no jaundice Psychiatric: A+Ox3, euthymic affect Results & Data Results & Data Vital Signs (Past 12 Hours) Vital Signs Temp Pulse Pulse Resp BP BP Pulse Ox 10/18/23 07:00 69 16 97 10/18/23 03:41 71 10/18/23 03:36 73 18 137/89 98 10/18/23 00:48 36.8 C 92 H 18 135/99 97 O2 Del Method 10/18/23 07:00 10/18/23 03:41 10/18/23 03:36 Room Air 10/18/23 00:48 Room Air Laboratory Results 10/18/23 10/18/23 Range/Units 01:40 01:35 WBC 12.71 H (4.8-10.8) K/ul RBC 4.71 (4.20-5.40) M/uL Hgb 15.2 (12.0-16.0) g/dl Hct 43.4 (37.0-47.0) % MCV 92.1 (80.0-100.0) fL MCH 32.3 (25.0-34.0) pg MCHC 35.0 (32.0-36.0) g/dL RDW Std Deviation 40.8 (36.4-46.3) fL RDW Coeff of Pauline 12.0 (11.5-14.5) % Plt Count 354 (130-400) K/uL MPV 9.9 (9.4-12.4) fL Immature Gran % (Auto) 0.4 % Neut % (Auto) 65.1 % Lymph % (Auto) 24.5 % [place] % (Auto) 8.7 % Eos % (Auto) 0.7 % Baso % (Auto) 0.6 % Neut # (Auto) 8.27 H (1.40-6.50) K/uL Lymph # (Auto) 3.12 (1.20-3.40) K/uL [place] # (Auto) 1.11 H (0.11-0.59) K/uL Eos # (Auto) 0.09 (0.00-0.50) K/uL Baso # (Auto) 0.07 (0.00-0.20) K/uL Immature Gran # (Auto) 0.05 (0.01-0.20) K/uL Sodium 135 L (136-145) mmol/L Potassium 3.6 (3.5-5.1) mmol/L Chloride 103 (98-107) mmol/L Carbon Dioxide 23 (21-32) mmol/L Anion Gap 9 (3-11) BUN 12 (6-23) mg/dl Creatinine 0.82 (0.6-1.2) mg/dl Est Cr Clr Drug Dosing 131.9 ml/min Est GFR ( Amer) 105.2 ml/min Est GFR (Non-Af Amer) 90.8 ml/min BUN/Creatinine Ratio 14.6 (10-20) Glucose 102 H (70-99(Fasting)) mg/dl Calcium 9.7 (8.6-10.3) mg/dl Total Bilirubin 0.7 (0.2-1.0) mg/dl AST 22 (13-39) U/L ALT 19 (7-52) U/L Alkaline Phosphatase 64 (34-104) U/L Total Protein 8.0 (6.0-8.3) gm/dl Albumin 4.9 (3.4-5.0) gm/dl Globulin 3.1 (2.5-4.0) gm/dl Albumin/Globulin Ratio 1.6 (0.9-2) Lipase 6 L (11-82) U/L HCG, Qual Negative (Negative) Urine Color Yellow Urine Appearance Clear (Clear) Urine pH 5.5 (4.5-7.5) Ur Specific [place] 1.009 (1.000-1.030) Urine Protein Negative (Negative) Urine Glucose (UA) Negative (Negative) Urine Ketones 2+ H (Negative) Urine Blood Negative (Negative) Urine Nitrite Negative (Negative) Urine Bilirubin Negative (Negative) Urine Urobilinogen Negative (Negative) Ur Leukocyte Esterase Negative (Negative) Diagnostic Findings Exam(s): US GALLBLADDER EXAM: US Abdomen Limited, Gallbladder CLINICAL HISTORY: Reason for exam: RUQ pain. TECHNIQUE: Real-time ultrasound of the right upper quadrant with image documentation. COMPARISON: No relevant prior studies available. FINDINGS: Liver: Fatty liver. Gallbladder: There are multiple gallstones. Gallbladder wall thickness measures 3.8 mm. Positive ultrasound Rockwell sign. Common bile duct: CBD caliber measures up to 9.3 mm in diameter. Pancreas: No pancreatic ductal dilation Right kidney measures 11.5 cm in length. IMPRESSION: 1. Cholelithiasis with gallbladder wall thickening and positive ultrasound Rockwell sign. These findings are suggestive of acute cholecystitis. 2. Prominent CBD caliber which can be further assessed on MRCP study Code Status & VTE Plan VTE Prophylaxis Plan VTE Prophylaxis will be ordered: Yes Supervising Physician Co-Signing Physician Notes I have seen and examined the patient personally and agree with the above assessment and plan. In brief 38-year-old woman with sudden onset of abdominal pain on Monday with nausea and fever. The pain improved but then worsened over the last 2 days. Ultrasound demonstrating acute calculus cholecystitis. We discussed the risks and benefits of a laparoscopic cholecystectomy as well as the postoperative course and recovery period. All her questions were answered, she is agreeable to proceed. Will take her to the operating room at the earliest convenience.
[2023-10-18] MEDS ORDERED: MoRPHine SULFATE 2 MG/ML CARP IV PRN (09:44)
[2023-10-18] MEDS ORDERED: LORazepam 1 MG in SYRINGE 0.5 ML IV STA (09:44)
[2023-10-18] MEDS ORDERED: MoRPHine SULFATE 4 MG/ML 1 ML CARP\\VIAL IV PRN (09:44)
[2023-10-18] MEDS: LORazepam 1 MG/1 ML SYR ED Inj Use IV STA (10:16)
--- NOTE | 2023-10-18 10:27 | Anesthesiology Consultation ---
Date of Service October 18, 2023 Assessment & Plan Chart Review Chart Review: Acceptable Risk for Surgery and Patient NOT seen in Pre Admission Testing History Surgery Operation Date: 10/18/23 11:25 Proposed Procedures p Laparoscopic Cholecystectomy - Nakul De Guzman MD Height/Weight Height: 5 ft 9 in Weight: 125.2 kg Allergies Allergy/AdvReac Type Severity Reaction Status Date / Time bee venom protein (honey bee) Allergy Severe ANAPHYLAXIS Verified 10/18/23 01:34 cinnamon Allergy Severe THROAT Unverified 10/18/23 01:34 SWELLING fexofenadine Allergy Mild Unknown Verified 10/18/23 01:34 Penicillins Allergy Mild Unknown Verified 10/18/23 01:34 pseudoephedrine Allergy Unknown . Verified 10/18/23 01:34 Medications Home Medications Medication Instructions Recorded Confirmed Last Taken multivitamin 1 tab PO DAILY 08/23/20 10/18/23 08/23/20 escitalopram oxalate 10 mg tablet 10 mg PO QAM 10/18/23 10/18/23 Unknown Past Medical History Medical History Prediabetes Asthma Past Surgical History Surgical History No pertinent past surgical history Social History Smoking Status: Current every day smoker Physical Exam Vital Signs Last Vital Signs Temp 36.8 C 10/18/23 00:48 Pulse 63 10/18/23 09:00 Resp 19 10/18/23 09:00 BP 140/88 10/18/23 09:00 Pulse Ox 97 10/18/23 09:00 O2 Del Method Room Air 10/18/23 03:36 Testing Laboratory Results 10/18/23 01:35 10/18/23 01:35 Urine Color Yellow 10/18/23 01:40 Urine Appearance Clear (Clear) 10/18/23 01:40 Urine pH 5.5 (4.5-7.5) 10/18/23 01:40 Ur Specific [place] 1.009 (1.000-1.030) 10/18/23 01:40 Urine Protein Negative (Negative) 10/18/23 01:40 Urine Glucose (UA) Negative (Negative) 10/18/23 01:40 Urine Ketones 2+ (Negative) H 10/18/23 01:40 Urine Nitrite Negative (Negative) 10/18/23 01:40 Ur Leukocyte Esterase Negative (Negative) 10/18/23 01:40
[2023-10-18] MEDS: LACTATED RINGER'S 1,000 ML IV SCH (10:53)
[2023-10-18] MEDS ORDERED: ePHEDrine sulfate 50 MG/ML AMP IV PRN (11:03)
[2023-10-18] MEDS ORDERED: ONDANSETRON INJ 2 MG/ML 2 ML VIAL IV PRN (11:03)
[2023-10-18] MEDS ORDERED: ATROPINE SULFATE 0.1 MG/ML 10ML SYR IV PRN (11:03)
--- NOTE | 2023-10-18 11:03 | Anesthesiology Consultation ---
Date of Service October 18, 2023 Assessment & Plan Chart Review Chart Review: Acceptable Risk for Surgery and Patient NOT seen in Pre Admission Testing Consults Requested none History Surgery Operation Date: 10/18/23 11:25 Proposed Procedures p Laparoscopic Cholecystectomy - Nakul De Guzman MD Height/Weight Height: 5 ft 9 in Weight: 127.3 kg Allergies Allergy/AdvReac Type Severity Reaction Status Date / Time bee venom protein (honey bee) Allergy Severe ANAPHYLAXIS Verified 10/18/23 01:34 cinnamon Allergy Severe THROAT Unverified 10/18/23 01:34 SWELLING fexofenadine Allergy Mild Unknown Verified 10/18/23 01:34 Penicillins Allergy Mild Unknown Verified 10/18/23 01:34 pseudoephedrine Allergy Unknown . Verified 10/18/23 01:34 Medications Home Medications Medication Instructions Recorded Confirmed Last Taken multivitamin 1 tab PO DAILY 08/23/20 10/18/23 08/23/20 escitalopram oxalate 10 mg tablet 10 mg PO QAM 10/18/23 10/18/23 Unknown Active Medications Generic Name Dose Route Start Last Admin Trade Name Freq PRN Reason Stop Dose Admin Lactated Ringer's 1,000 mls @ 125 mls/hr 10/18/23 09:45 10/18/23 10:53 Lr IV 11/17/23 09:44 125 mls/hr .Q8H DOROTHY Administration Past Medical History Medical History Prediabetes Asthma Past Surgical History Surgical History No pertinent past surgical history Social History Smoking Status: Current every day smoker Smoking cigarettes per day: pack per day Do You Dip or Chew Tobacco: No Hx Alcohol Use: No Hx Substance Use: No Physical Exam Vital Signs Last Vital Signs Temp 36.8 C 10/18/23 00:48 Pulse 74 10/18/23 10:28 Resp 18 10/18/23 10:28 BP 121/91 10/18/23 10:28 Pulse Ox 97 10/18/23 10:56 O2 Del Method Room Air 10/18/23 10:56 Testing Laboratory Results 10/18/23 01:35 10/18/23 01:35 Urine Color Yellow 10/18/23 01:40 Urine Appearance Clear (Clear) 10/18/23 01:40 Urine pH 5.5 (4.5-7.5) 10/18/23 01:40 Ur Specific [place] 1.009 (1.000-1.030) 10/18/23 01:40 Urine Protein Negative (Negative) 10/18/23 01:40 Urine Glucose (UA) Negative (Negative) 10/18/23 01:40 Urine Ketones 2+ (Negative) H 10/18/23 01:40 Urine Nitrite Negative (Negative) 10/18/23 01:40 Ur Leukocyte Esterase Negative (Negative) 10/18/23 01:40
[2023-10-18] MEDS ORDERED: PROPOFOL IV EMULSION 10 MG/ML 20 ML VIAL IV ONE (11:21)
[2023-10-18] MEDS ORDERED: ROCURONIUM BROMIDE 10 MG/ML 5 ML VIAL IV ONE ×2 (11:21→13:33)
[2023-10-18] MEDS ORDERED: MIDAZOLAM HCL 1 MG/ML 2ML VIAL ONE (11:21)
[2023-10-18] MEDS ORDERED: LIDOCAINE 2% 2 ML VIAL/AMP(20MG/ML) INFIL ONE (11:21)
[2023-10-18] MEDS ORDERED: ONDANSETRON INJ 2 MG/ML 2 ML VIAL ONE (11:21)
[2023-10-18] MEDS ORDERED: fentaNYL citrate PF 100 MCG/2 ML VIAL ONE ×3 (11:21→13:29)
[2023-10-18] MEDS ORDERED: DEXAMETHASONE SOD INJ 4 MG/ML VIAL ONE (11:21)
--- OUTSIDE RECORDS SUMMARY | 2023-10-18 11:22 | External Medical Summary | Summary of Care ---
Author Name Unknown Organization [facility] Address [address] [place] [address] Phone [phone] Care Team Providers Care Furnace Combustion Tester Name Role Phone Andrew Max MD Primary Care Provider + Reason for Visit * Reason Comments Follow Up 6 month follow up. P atient denied any new concerns. Encounter Details Date Type Department Care Team (Late st Contact Info) Description 05/03/2023 12:40 PM EDT Telemedicine General Internal Medicine [facility] [address] [place] [address] Andrew Max MD [address] [place] [address] [phone] COVID-19*; Recurrent major depressive disorder, in partial remission (HCC); Fatty liver; Obesity (BMI 30-39.9); AMELIA (generalized anxiety disorder); Encounter for long-term (current) use of medications Allergies Active Allergy Reactions Criticality Noted Date Comments Bee Venom Edema airway High 03/02/2020 Other reaction(s): ANAPHYLAXIS Cinnamon Edema airway High 03/02/2020 Other reaction(s): THROAT SWELLING Penicillins Nausea/vomiting,Rash Low 05/04/2004 Other reaction(s): Unknown Sympathomimetics 05/04/2004 zander d documented as of this encounter (statuses as of 05/03/2023) Medications Medication Sig Dispensed Refills Start Date End Date Status Ibuprofen 200 MG Oral TabletIndications: Acute bilateral low back pain without sciatica Take by mouth every 4 hours as needed for Pain. with food 100 Tab 5 04/12/2017 Active Nebulizers (NEBULIZER COMPRESSOR) MISCIndications:Co ugh,Acute bronchitis, unspecified organism Inhale via nebulizer. Use as directed. pls include all necessary tubing 1 Each 1 03/20/2019 Active loratadine (CLARITIN) 10 MG TabletIndications: Seasonal allergic rhinitis due to pollen Take 1 Tab by mouth daily. 30 Tab 11 11/25/2019 Active acetaminophen (TYLENOL) 500 MG Tablet Take 2 Tablets by mouth every 6 hours as needed for Fever (Temp Greater than ). 0 Active Albuterol Sulfate HFA 108 (90 Base) MCG/ACT Inhalation Aerosol SolutionIndication s:Mild persistent asthma without complication INHALE 2 PUFFS BY MOUTH EVERY 4 HOURS NEEDED FOR WHEEZING 18 g 5 02/12/2021 Active Vitamin D (Cholecalciferol) 25 MCG (1000 UT) Oral Capsule Take by mouth . 0 Active SUMAtriptan Succinate 50 MG Oral Tablet Take 2 tablets at onset of migraine and one tablet every 2 hours as needed, not more than 4 tablets in 24 hours 6 Tab 1 02/24/2021 Active Cyclobenzaprine HCl 10 MG Oral Tablet (Flexeril)Indicati ons:Chronic bilateral low back pain without sciatica,Hip pain, right Take 1 Tablet by mouth 3 times a day as needed for Pain. 30 Tablet 0 06/08/2021 Active Compressor NebulizerIndicatio ns:Mild persistent asthma without complication Inhale via nebulizer. Use as directed. Please include all necessary tubing and supplies Dx J45.3 1 Each 1 07/21/2021 Active Albuterol Sulfate (2.5 MG/3ML) 0.083% Inhalation Nebulization Solution (Proventil)Indicat ions:Cough,Acute bronchitis, unspecified organism USE 1 VIAL IN NEBULIZER EVERY 6 HOURS NEEDED FOR WHEEZING 75 mL 5 11/24/2021 Active Cyanocobalamin 1000 MCG Oral TabletIndications: Vitamin B12 deficiency Take 1 Tablet by mouth in the morning. 90 Tablet 1 10/13/2022 Active Escitalopram Oxalate 10 MG Oral Tablet (Lexapro)Indicatio ns:Recurrent major depressive disorder, in partial remission (HCC),AMELIA (generalized anxiety disorder) TAKE 1 TABLET BY MOUTH EVERY DAY IN THE MORNING 90 Tablet 3 11/14/2022 Active Trulicity 0.75 MG/0.5ML Subcutaneous Solution Pen-injector (Dulaglutide)Indic ations:Fatty liver,Prediabetes, Obesity (BMI 30-39.9) Inject 0.75 mg under the skin once a week. 2 mL 0 04/19/2023 Active Nirmatrelvir&Riton avir 300/100 20 x 150 MG & 10 x 100MG Oral Tablet Therapy Pack (Paxlovid)Indicati ons:COVID-19 virus infection Take 2 pink tablets of Nirmatrelvir and 1 white tablet of Ritonavir two times a day by mouth. 30 Tablet 0 04/28/2023 Active Ondansetron HCl 8 MG Oral TabletIndications: Diarrhea, unspecified type,Nausea Take 1 Tablet by mouth every 8 hours as needed for Nausea for up to 7 days. 21 Tablet 0 12/30/2022 3 Discontinue d(Patient preference/ discontinua tion) Ozempic (2 MG/DOSE) 8 MG/3ML Subcutaneous Solution Pen-injector (Semaglutide (2 MG/DOSE))Indicatio ns:Body mass index (BMI) of 40.0 to 44.9 in adult (HCC),Pre-diabetes INJECT 0.75 ML UNDER THE SKIN ONCE A WEEK. 9 mL 1 02/21/2023 3 Discontinue d(Patient preference/ discontinua tion) valACYclovir HCl 1 GM Oral Tablet (Valtrex)Indicatio ns:Rash and nonspecific skin eruption Take 1 Tablet by mouth in the morning and 1 Tablet at noon and 1 Tablet before bedtime. Do all this for 7 days. For 7 days for shingles. 21 Tablet 0 04/19/2023 3 Discontinue d(Patient preference/ discontinua tion) documented as of this encounter (statuses as of 05/03/2023) Active Problems Problem Noted Date Diagnosed Date Common bile duct dilation 10/13/2022 Restless legs syndrome (RLS) 12/08/2021 Recurrent major depressive disorder, in partial remission 01/13/2021 Overview: With anxious distress Chronic migraine 12/08/2020 Fatty liver 10/27/2020 Osteitis condensans ilii 10/27/2020 Tobacco use disorder 08/23/2019 AMELIA (generalized anxiety disorder) 08/07/2019 Seasonal allergic rhinitis due to pollen 019 Obesity (BMI 30-39.9) 04/18/2017 Overview: Per Obesity protocol #1 Asthma, mild persistent 01/24/2013 documented as of this encounter (statuses as of 05/03/2023) Resolved Problems Problem Noted Date Diagnosed Date Resolved Date Major depressive disorder with single episode 12/09/19 22 12/22/2021 Pre-diabetes 10/27/2020 10/20/2022 Former tobacco use 04/28/2020 1 Current moderate episode of major depressive disorder without prior episode 08/07/2019 2 ADVANCE DIRECTIVE INFORMATION 03/26/2014 06/19/2019 Overview: Yes, Patient instructed to provide copy of advance directive for provider to review and to be scanned into Electronic Medical Record Obesity, Class II, BMI 35-39 .9, isolated (see actual BMI) 03/26/2014 04/21/2017 Overview: Per Obesity protocol #1 Abnormal quad screen 01/07/2014 019 Overview: Risk of DS 1/200 MFM consult placed Recommended Materni 21, had not decided yet Positive screening test 12/17/2013 05/08/2014 Overview: + Quad screen- DS-pt had cancelled MFM appts; pt saw MFM at 25wks. Negative [id number] , normal first 08/22/201304/11 Obesity complicating 08/22/2013 05/08/2014 Overview: BMI: 39.23 kg/m at NOB -early 1hr gtt- elevated, needs 3hr gtt-normal -Recommend Maternal Medicine ultrasound for growth every 6 to 8 weeks after 24 weeks. -For patients with Class 3 obesity, we recommend surveillance twice weekly to begin at 32 weeks and delivery by EDC. Tobacco use in 08/22/2013 Overview: Smoking 1/2 pdd at NOB; intends to quit @21wks-continues to smoke-no change in quantity @44v1e-od change in smoking Asthma with severity to be determined 12/31/2009 01/24/2013 Overview: Per Asthma Taxonomy ICD-10 update of inactive term CONTRACEPT PILL SURVEILL 12/22/2005 Asthma, allergic 12/31/2009 documented as of this encounter (statuses as of 05/03/2023) Immunizations Name Administration Dates Next Due COVID-19 mRNA, LNP-s, No Pre serve, 2-Dose Series (OrderBorder) 02/09/2021,01/19/2021 DTP Vaccine 04/25/2014 HPV Vaccine, 4-Valent 07/12/2006 Haemophilius B (HIB), unspecified 09/21/1987 Hepatitis B, 20+ yrs 11/10/1997,09/09/1997,06/05 PPD 06/04/2017,05/17/2006,06/16/1986 Pneumococcal Conjugate Vacci ne, 20-valent ([id number]) 04/05/2022 Pneumococcal Polysaccharide PPV23 (Pneumovax) 03/10/2020 SEASONAL INFLUENZA, PF, 6 M & Above, IM , (FLULAVAL or FLUZONE) 04/05/2022,06/08/2021,03/10/2020,04/12 Seasonal Influenza Virus Vac cine, Unspecified Formulation 03/10/2020,04/12/2017,04/26/2015,04/25 Seasonal Influenza, Quadriva lent, No Preserve, IM 04/26/2015 Seasonal Influenza, Split, I IV3, With Preserve, Inj 04/25/2014 TD - Tetanus/Diptheria (ADULT) 08/29/2013 TDAP (age 11 and older)(Adacel) 04/25/2014 documented as of this encounter Social History Tobacco Use Types Packs/Day Years Used Date Smoking Tobacco: Every Day Cigarettes 0.5 10 Last attempted to quit: 04/16/2020 Smokeless Tobacco: Never Tobacco Cessation:Ready to Q uit: No; Counseling Given: No Comments:10 cigs per day as of 08/07/2019 Alcohol Use Standard Drinks/Week Comments No 0 (1 standard drink = 0.6 oz pur e alcohol) rarely AUDIT-C Answer Date Recorded Frequency of Alcohol Consumption Never 08/13/2018 Average Number of Drinks Not on file 019 Frequency of Binge Drinking Not on file 10/2018 PHQ-2 Answer Date Recorded PHQ Adult Total Score 15 10/13/2022 Hunger Vital Sign Answer Date Recorded Within the past 12 months, y ou worried that your food would run out before you got the money to buy more. Never true 04/28/20 23 Within the past 12 months, t he food you bought just didn't last and you didn't have money to get more. Never true 04/28/2023 Sex and Gender Information Value Date Recorded Sex Assigned at Female 06/19/2019 3:44 PM EST Gender Identity Female 06/19/2019 3:44 PM EST Sexual Orientation Straight 06/19/2019 3: 44 PM EST Job Start Date Occupation Industry Not on file Not on file Not on file documented as of this encounter Last Filed Vital Signs Vital Sign Reading Time Taken Comments Blood Pressure - - Pulse - - Temperature - - Respiratory Rate - - Oxygen Saturation - - Inhaled Oxygen Concentration - - Weight 117.9 kg (260 lb) 05/03/2023 12:45 PM EDT Height - - Body Mass Index 38.4 10/13/2022 1:09 PM EDT documented in this encounter Progress Notes * Andrew Max MD - 05/03/2023 12:47 PM EDT Patient location: HOME. I was in a hospital or clinic location. After connecting through televideo,patient was verified with two unique identifiers. Patient (or authorized legal agency sales representative) was then informed that this was a Telemedicine visit and being conducted confidentially over secure lines. Methods to assure confidentiality were taken. Patient acknowledged consent and understanding of pr ivacy and security of the Telemedicine visit. The patient agreed to participate. Chief Complaint Patient presents with Follow Up 6 month follow up. Patient denied any new concerns. SUBJECTIVE: Hui Bernard is a 37 year old female with PMH as below who presents for 6 month follow up of fatty liver, obesity, anxiety. Has covid currently, fever resolved today, no sob, waters, not worsening, is now on Paxlovid, is isolating. Mood and anxiety good. Now on trulicity for weight loss as ozempic supply gone. Tolerating fine. No n/v/d. Feels good other then covid Rash from last ov resolved Patient Active Problem List Diagnosis Code Asthma, mild persistent J45.30 Obesity (BMI 30-39.9) E66.9 Seasonal allergic rhinitis due to pollen J30.1 AMELIA (generalized anxiety disorder) F41.1 Tobacco use disorder F17.200 Fatty liver K76.0 Osteitis condensans ilii M85.38 Chronic migraine [id number] Recurrent major depressive disorder, in partial remission (HCC) F33.41 Restless legs syndrome (RLS) G25.81 Common bile duct dilation K83.8 Current Outpatient Medications Medication Sig Dispense Refill Ibuprofen 200 MG Oral Tablet Take by mouth every 4 hours as needed for Pain. with food 100 Tab 5 loratadine (CLARITIN) 10 MG Tablet Take 1 Tab by mouth daily. 30 Tab 11 acetaminophen (TYLENOL) 500 MG Tablet Take 2 Tablets by mouth every 6 hours as needed for Fever (Temp Greater than ). Albuterol Sulfate HFA 108 (90 Base) MCG/ACT Inhalation Aerosol Solution INHALE 2 PUFFS BY MOUTH EVERY 4 HOURS NEEDED FOR WHEEZING 18 g 5 Vitamin D (Cholecalciferol) 25 MCG (1000 UT) Oral Capsule Take by mouth . SUMAtriptan Succinate 50 MG Oral Tablet Take 2 tablets at onset of migraine and one tablet every 2 hours as needed, not more than 4 tablets in 24 hours 6 Tab 1 Cyanocobalamin 1000 MCG Oral Tablet Take 1 Tablet by mouth in the morning. 90 Tablet 1 Escitalopram Oxalate 10 MG Oral Tablet (Lexapro) TAKE 1 TABLET BY MOUTH EVERY DAY IN THE MORNING 90Tablet 3 Trulicity 0.75 MG/0.5ML Subcutaneous Solution Pen-injector (Dulaglutide) Inject 0.75 mg under the skin once a week. 2 mL 0 Nirmatrelvir&Ritonavir 300/100 20 x 150 MG & 10 x 100MG Oral Tablet Therapy Pack (Paxlovid)Take 2 pink tablets of Nirmatrelvir and 1 white tablet of Ritonavir two times a day by mouth. 30 Tablet 0 Nebulizers (NEBULIZER COMPRESSOR) MISC Inhale via nebulizer. Use as directed. pls include all necessary tubing 1 Each 1 Cyclobenzaprine HCl 10 MG Oral Tablet (Flexeril) Take 1 Tablet by mouth 3 times a day as needed forPain. 30 Tablet 0 Compressor Nebulizer Inhale via nebulizer. Use as directed. Please include all necessary tubing andsupplies Dx J45.3 1 Each 1 Albuterol Sulfate (2.5 MG/3ML) 0.083% Inhalation Nebulization Solution (Proventil) USE 1 VIAL IN NEBULIZER EVERY 6 HOURS NEEDED FOR WHEEZING 75 mL 5 No current facility-administered medications for this visit. Review of patient's allergies indicates: Allergen Reactions Bee Venom Edema airway Other reaction(s): ANAPHYLAXIS Cinnamon Edema airway Other reaction(s): THROAT SWELLING Sympathomimetics zander d Penicillins Nausea/vomiting and Rash Other reaction(s): Unknown Health Maintenance Due Topic Date Due DISCUSS TOBACCO CESSATION (REFER TO SMARTSET #1146) Never done GARDASIL-HPV IMMUNIZATION SERIES (2 - 3-dose series) 08/09/2006 *SPIROMETRY ONCE FOR ASTHMA-ADULT Never done Depression, Most Recent Score >= 10 (will fire each visit until score < 10) 10/14/2022 Cervical Cancer Screening 12/22/2022 Influenza Vaccine (FLU shot) (1) 03/10/2023 COVID-19 Vaccine ( season) 2023 ROS: CONSTITUTIONAL: No change in weight, No weakness, and No current fevers, EYE: No recent significant change in vision, No eye pain, redness, discharge, and No diplopia EARS: No ear pain, No drainage, No tinnitus or vertigo, and No recent change in hearing PULMONARY: No rales CARDIOVASCULAR: No chest pain, No orthopnea, No paroxysmal nocturnal dyspnea, No edema, No palpitations, and No syncope ALL OTHER SYSTEMS NEGATIVE I reviewed social, PMH, PSH, and family history and updated where needed. Social History Socioeconomic History Marital status: Spouse name: Not on file Number of children: 0 Years of education: Not on file Highest education level: Not on file Occupational History Occupation: [employer] Tobacco Use Smoking status: Every Day Packs/day: 0.50 Years: 10.00 Additional pack years: 0.00 Total pack years: 5.00 Types: Cigarettes Last attempt to quit: 04/16/2020 Years since quittin.0 Smokeless tobacco: Never Tobacco comments: 10 cigs per day as of 08/07/2019 Vaping Use Vaping Use: Never used Substance and Sexual Activity Alcohol use: No Comment: rarely Drug use: No Sexual activity: Yes Partners: Male control/protection: Condom Other Topics Concern Not on file Social History Narrative Not on file Social Determinants of Health Financial Resource Strain: Not on file Food Insecurity: No Food Insecurity (04/28/2023) Hunger Vital Sign Worried About Running Out of Food in the Last Year: Never true Ran Out of Food in the Last Year: Never true Transportation Needs: Not on file Physical Activity: Not on file Stress: Not on file Social Connections: Not on file Intimate Partner Violence: Not on file Housing Stability: Not on file Past Medical History: Diagnosis Date Abnormal quad screen 01/07/2014 Risk of DS MFM consult placed Recommended Materni 21, had not decided yet Asthma, mild persistent 01/24/2013 Chronic migraine 12/08/2020 Fatty liver 10/27/2020 Former tobacco use 04/28/2020 Pre-diabetes 10/27/2020 Past Surgical History: Procedure Laterality Date DENTAL SURGERY PROCEDURE NEC Right 04/17/2020 NONE Family History Problem Relation Age of Onset Hypertension Grandmother (Maternal) Other (renal) Grandmother (Maternal) Hypertension Grandfather (Maternal) No Past Hx Mother Cancer Father nonHodgkins OBJECTIVE: PHYSICAL EXAM: Wt 117.9 kg (260 lb) | BMI 38.40 kg/m | BSA 2.4 m General: alert, healthy, and no distress Head: Normocephalic, No masses, lesions, or abnormalities Lungs: normal respiratory rate and rhythm, no wheezing Psych: normal affect, no flight of ideas or tangential thought, good eye contact, no pressured speech ASSESSMENT: U07.1 COVID-19 (primary encounter diagnosis) F33.41 Recurrent major depressive disorder, in partial remission (HCC) K76.0 Fatty liver E66.9 Obesity (BMI 30-39.9) F41.1 AMELIA (generalized anxiety disorder) Z79.899 Encounter for long-term (current) use of medications PLAN: COVID-19 (Primary) Fluids, rest, isolation Finish paxlovid Recurrent major depressive disorder, in partial remission (HCC) Seems controlled Cont Lexapro Fatty liver - COMPREHENSIVE METABOLIC PANEL; Future; Expected date: 05/03/2023 - LIPID PANEL WITH DIRECT LDL IF TG IS HIGH; Future; Expected date: 05/03/2023 - CBC WITH WBC DIFFERENTIAL; Future; Expected date: 05/03/2023 - HEMOGLOBIN A1C; Future; Expected date: 05/03/2023 Cont weight loss efforts Labs soon Obesity (BMI 30-39.9) On trulicity 2/2 supply Tolerating ok No fh thyroid cancer, again reviewed AMELIA (generalized anxiety disorder) Cont lexapro Encounter for long-term (current) use of medications Check 25 oh Follow Up: Return in about 6 months (around 11/02/2023), or if symptoms worsen or fail to improve, for Fasting Labs Soon. | For: Fasting Labs Soon she will call to schedule environmental services technician when feeling better Andrew Max MD documented in this encounter Nursing Notes * Dave Penn CMA - 05/03/2023 12:43 PM EDT Chief Complaint Patient presents with Follow Up 6 month follow up. Patient denied any new concerns. documented in this encounter Plan of Treatment Scheduled Orders Name Type Priority Associated Diagnoses Orde r Schedule COMPREHENSIVE METABOLIC PANEL Lab Routine Fatty liver Expected: 05/03/2023 (Approximate), Expires: 05/02/2024 LIPID PANEL WITH DIRECT LDL IF TG IS HIGH Lab Routine Fatty liver Expected: 05/03/2023, Expires: 05/03/2024 CBC WITH WBC DIFFERENTIAL Lab Routine Fatty liver Expected: 05/03/2023 (Approximate), Expires: 05/03/2024 HEMOGLOBIN A1C Lab Routine Fatty liver Expected: 05/03/2023 (Approximate), Expires: 05/02/2024 25-HYDROXY VITAMIN D Lab Routine Encounter for long-term (current) use of medications Expected: 05/03/2023 (Approximate), Expires: 05/02/2024 Health Maintenance Due Date Last Done Comments DISCUSS TOBACCO CESSATION (REFER TO SMARTSET #1060) 1985 GARDASIL-HPV IMMUNIZATION SERIES (2 - 3-dose series) 08/09/2006 07/12/2006 HPV/Co-Test 09/12/2015 *SPIROMETRY ONCE FOR ASTHMA-ADULT 08/28/2016 Depression, Most Recent Score >= 10 (will fire each visit until score < 10) 10/14/2022 10/13/2022 Cervical Cancer Screening 12/22/2022 Pap Smear 12/22/2022 12/23/2019, 12/08, 05/08/2017, Additional history exists COVID-19 Vaccine (3 - 2022- season) 2023 02/09/2021, 01/19/2021 Influenza Vaccine (FLU shot) (#1) 2023 04/05/2022, 06/08/2021, 03/10/2020, Additional history exists DTaP,Tdap,and Td Vaccines (8 - Td or Tdap) 04/25/2024 04/25/2014, 04/25/2014, 08/29/2013, Additional history exists Diabetes Screening 10/11/2025 10/11/2022, 0 10/11/2022, 12/09/2021, Additional history exists Hepatitis B Completed 11/10/1997, 10/1997, 09/09/1997, Additional history exists Pneumococcal Vaccine: Pediatrics (0 to 5 Years) and At-Risk Patients (6 to 64 Years) Completed 04/05/2022, 03/10/2020 MENINGOCOCCAL (MENACTRA/MENVEO) Aged Out No longer eligible based on patient's age to complete this topic documented as of this encounter Medical Devices Not on filedocumented as of this encounter Visit Diagnoses Diagnosis COVID-19- Primary Recurrent major depressive disorder, in partial remission (HCC) Fatty liver Other chronic nonalcoholic liver disease Obesity (BMI 30-39.9) Obesity, unspecified AMELIA (generalized anxiety disorder) Generalized anxiety disorder Encounter for long-term (current) use of medications Encounter for long-term (current) use of other medications documented in this encounter Care Teams Furnace Combustion Tester Relationship Specialty Start Date End Date Andrew Max MD [address] [facility] [place] [place] [address] PCP - General Internal Medicine 05/27/13 documented as of this encounter"
--- OUTSIDE RECORDS SUMMARY | 2023-10-18 11:22 | External Medical Summary | Summary of Care ---
Author Name Unknown Organization [facility] Address [address] [place] [address] Phone [phone] Care Team Providers Care Behavioral Health Therapist Name Role Phone Andrew Max MD Primary Care Provider + Reason for Visit * Reason Comments Weight Management Discuss meds and t * Evaluate & Treat - Unlimited Visits (Within 10 days (routine)) - Pending Review Specialty Diagnoses / Procedures Referred By Contact Referred To Contact GI NUTRITION/IM / Gastroenterology Diagnoses Obesity (BMI 30-39.9) Andrew Max MD [address] [place] [address] Referral ID Status Reason Start Date Expiration Date Visits Requested Visits Authorized [id number] Pending Review Specialty Services Required 07/11/[phone] Encounter Details Date Type Department Care Team (Late st Contact Info) Description 08/07/2023 3:00 PM EST Office Visit Nutrition & Weight Management, [facility] [address] [place] [address] Nati Cruz PA-C [address] [place] [address] Morbid obesity due to excess calories (HCC)*; Abnormal weight gain; Fatty liver; AMELIA (generalized anxiety disorder) Allergies Active Allergy Reactions Criticality Noted Date Comments Bee Venom Edema airway High 03/02/2020 Other reaction(s): ANAPHYLAXIS Cinnamon Edema airway High 03/02/2020 Other reaction(s): THROAT SWELLING Penicillins Nausea/vomiting,Rash Low 05/04/2004 Other reaction(s): Unknown Sympathomimetics 05/04/2004 zander d documented as of this encounter (statuses as of 08/07/2023) Medications Medication Sig Dispensed Refills Start Date End Date Status Ibuprofen 200 MG Oral TabletIndications :Acute bilateral low back pain without sciatica Take by mouth every 4 hours as needed for Pain. with food 100 Tab 5 04/12/2017 Active Nebulizers (NEBULIZER COMPRESSOR) MISCIndications:C ough,Acute bronchitis, unspecified organism Inhale via nebulizer. Use as directed. pls include all necessary tubing 1 Each 1 03/20/2019 Active loratadine (CLARITIN) 10 MG TabletIndications :Seasonal allergic rhinitis due to pollen Take 1 Tab by mouth daily. 30 Tab 11 11/25/2019 Active acetaminophen (TYLENOL) 500 MG Tablet Take 2 Tablets by mouth every 6 hours as needed for Fever (Temp Greater than ). 0 Active Albuterol Sulfate HFA 108 (90 Base) MCG/ACT Inhalation Aerosol SolutionIndicatio ns:Mild persistent asthma without complication INHALE 2 PUFFS [...] Active Cyclobenzaprine HCl 10 MG Oral Tablet (Flexeril)Indicat ions:Chronic bilateral low back pain without sciatica,Hip pain, right Take 1 Tablet by mouth 3 times a day as needed for Pain. 30 Tablet 0 06/08/2021 Active Compressor NebulizerIndicati ons:Mild persistent asthma without complication Inhale via nebulizer. Use as directed. Please include all necessary tubing and supplies Dx J45.3 1 Each 1 07/21/2021 Active Albuterol Sulfate (2.5 MG/3ML) 0.083% Inhalation Nebulization Solution (Proventil)Indica tions:Cough,Acute bronchitis, unspecified organism USE 1 VIAL IN NEBULIZER EVERY 6 HOURS NEEDED FOR WHEEZING 75 mL 5 11/24/2021 Active Cyanocobalamin 1000 MCG Oral TabletIndications :Vitamin B12 deficiency Take 1 Tablet by mouth in the morning. 90 Tablet 1 10/13/2022 Active Escitalopram Oxalate 10 MG Oral Tablet (Lexapro)Indicati ons:Recurrent major depressive disorder, in partial remission (HCC),AMELIA (generalized anxiety disorder) TAKE 1 TABLET BY MOUTH EVERY DAY IN THE MORNING 90 Tablet 3 11/14/2022 Active Trulicity 0.75 MG/0.5ML Subcutaneous Solution Pen-injector (Dulaglutide)Doris cations:Fatty liver,Prediabetes ,Obesity (BMI 30-39.9) INJECT 0.75MG UNDER THE SKIN ONE TIME PER WEEK 2 mL 2 05/25/2023 Active Zepbound 2.5 MG/0.5ML Subcutaneous Solution Auto-injector (Tirzepatide-Weig ht Management)Indica tions:Morbid obesity due to excess calories (HCC) Inject 2.5 mg under the skin once a week. 2 mL 1 08/07/2023 Active Zepbound 5 MG/0.5ML Subcutaneous Solution Auto-injector (Tirzepatide-Weig ht Management)Indica tions:Morbid obesity due to excess calories (HCC) Inject 5 mg under the skin once a week. Do not start before September 04, 2023. 2 mL 2 09/04/2023 Active Nirmatrelvir&Adolph navir 300/100 20 x 150 MG & 10 x 100MG Oral Tablet Therapy Pack (Paxlovid)Indicat ions:COVID-19 virus infection Take 2 pink tablets of Nirmatrelvir and 1 white tablet of Ritonavir two times a day by mouth. 30 Tablet 0 04/28/2023 08/07/19 24 Discontinued documented as of this encounter (statuses as of 08/07/2023) Active Problems Problem Noted Date Diagnosed Date [...] as of this encounter (statuses as of 08/07/2023) Resolved Problems Problem Noted Date Diagnosed Date [...] appts; pt saw MFM at 25wks. Negative [id number] , normal first 08/22/201304/11 Obesity complicating 08/22/2013 [...] quit @21wks-continues to smoke-no change in quantity @36n2v-bm change in smoking Asthma with severity to be determined 12/31/2009 01/24/2013 Overview: Per Asthma Taxonomy ICD-10 update of inactive term CONTRACEPT PILL SURVEILL 12/22/2005 Asthma, allergic 12/31/2009 documented as of this encounter (statuses as of 08/07/2023) Immunizations Name Administration Dates Next Due COVID-19 mRNA, LNP-s, No Pre serve, 2-Dose Series (Avancen MOD) 02/09/2021,01/19/2021 DTP Vaccine 04/25/2014 HPV Vaccine, 4-Valent 07/12/2006 Haemophilius B (HIB), unspecified 09/21/1987 Hepatitis B, 20+ yrs 11/10/1997,09/09/1997,06/05 PPD 06/04/2017,05/17/2006,06/16/1986 Pneumococcal Conjugate Vacci ne, 20-valent ([id number]) 04/05/2022 Pneumococcal Polysaccharide PPV23 (Pneumovax) 03/10/2020 Seasonal Influenza Virus Vac cine, Unspecified Formulation 03/10/2020,04/12/2017,04/26/2015,04/25 Seasonal Influenza, PF, 6 M & above, IM , (FluLaval or Fluzone) 04/05/2022,06/08/2021,03/10/2020,04/12 Seasonal Influenza, Quadriva lent, No Preserve, IM 04/26/2015 Seasonal Influenza, Split, I IV3, With Preserve, Inj 04/25/2014 TD - Tetanus/Diptheria (ADULT) 08/29/2013 TDAP (age 11 and older)(Adacel) 04/25/2014 documented as of this encounter Social History Tobacco Use Types Packs/Day Years Used Date Smoking Tobacco: Every Day Cigarettes 0.5 10 Last attempted to quit: 04/16/2020 Smokeless Tobacco: Never Comments:10 cigs per day as of 08/07/2019 [...] Sign Reading Time Taken Comments Blood Pressure 130/72 08/07/2023 3:06 PM EST Pulse 88 08/07/2023 3:06 PM EST Temperature 36.5 C (97.7 F) 08/07/2023 3:06 PM ES T Respiratory Rate - - Oxygen Saturation - - Inhaled Oxygen Concentration - - Weight 127.5 kg (281 lb 1.6 oz) 08/07/2023 3:06 PM EST Height 175.3 cm (5' 9") 08/07/2023 3:06 PM EST Body Mass Index 41.51 08/07/2023 3:06 PM EST documented in this encounter Progress Notes * Nati Cruz PA-C - 08/07/2023 3:10 PM EST COM[facility]ENSIVE WE[facility] MANAGEMENT [facility]IN[facility] CONSULTATION INITIAL CONSULT Referring Physician: Andrew Max MD Nursing Notes: Torrie Lake, MED ASSIST 08/07/23 1511 Sign at exiting of workspace Pt verified identity by last name and date. Chief Complaint Patient presents with Weight Management Discuss meds and diet Waist circumference 56.75 inches Neck circumference 15 inches Hui Bernard is a 37 year old patient who [facility]. - Initial clinic visit 08/07/2023 Weight 281 lbs Height 69" Body mass index is 41.51 kg/m. Wt Readings from Last 6 Encounters: 08/07/23 127.5 kg (281 lb 1.6 oz) 05/03/23 117.9 kg (260 lb) 04/19/23 117.9 kg (260 lb) 12/30/22 122.5 kg (270 lb 1.6 oz) 10/13/22 130.9 kg (288 lb 8 oz) 04/05/22 135.3 kg (298 lb 3.2 oz) HPI: Visit 08/07/23 The patient suffers from Morbid obesity Patient is interested in the following treatment options for obesity: possible medication use. Previous Weight Management Interventions: The patient has tried weight loss in the past without significant extermination inspector success. Previous interventions: Self-directed and Medical our clinic . Was on trulicity Saw our clinic in 2020-- did really well with ozempic but then insurance didn't cover Current Diet: Describes typical diet history/24 hr recall Breakfast: 3-4 days skip; smoothies or shake Snacks: blueberry almonds or granola and yogurt Lunch: tuna sandwich chips, coffee Snacks: usually don't Dinner: roasted chicken and veggies with rice Snacks: none Drinks: coffee, water, tea Restaurant meals: twice a week Past Medical History Glaucoma No Hypertension: No CAD: No Congestive heart failure No Dyslipidemia: No Lipid Panel Results: Results for orders placed or performed in visit on 10/11/22 LIPID PANEL WITH DIRECT LDL IF TG IS HIGH Result Value Ref Range Triglycerides 286 (H) <=174 mg/dL Cholesterol 188 <200 mg/dL HDL Cholesterol 33 (L) >49 mg/dL Non-HDL Cholesterol 155 <=159 mg/dL DVT/PE, clotting disorder: No Stroke: No Seizures: No Sleep Apnea: No Asthma: Yes COPD: No Patient denies personal or family history of medullary thyroid carcinoma. Patient denies personal or family history of multiple endocrine neoplasia syndrome type II Patient denies personal history of pancreatitis Fatty Liver: yes Diabetes: No Hemoglobin A1C last 3 results: Lab Results Component Value Date/Time HEMOGLOBIN A1C - [facility] 5.4 10/11/2022 07:08 AM HEMOGLOBIN A1C - [facility] 5.9 (H) 12/09/2021 11:23 AM HEMOGLOBIN A1C - [facility] 5.7 (H) 05/31/2021 10:39 AM HEMOGLOBIN-OUTSIDE LAB 14.8 09/17/2017 12:00 AM Insulin Resistance: Yes PCOS: No GERD: No History of nephrolithiasis: No. 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 Chronic migraine [id number] Recurrent major depressive disorder, in partial remission (HCC) F33.41 Restless legs syndrome (RLS) G25.81 Common bile duct dilation K83.8 Past Surgical History: Procedure Laterality Date DENTAL SURGERY PROCEDURE NEC Right 04/17/2020 NONE Review of patient's allergies indicates: Allergen Reactions Bee Venom Edema airway Other reaction(s): ANAPHYLAXIS Cinnamon Edema airway Other reaction(s): THROAT SWELLING Sympathomimetics zander d Penicillins Nausea/vomiting and Rash Other reaction(s): Unknown Current Outpatient Medications Medication Sig Dispense Refill Ibuprofen 200 MG Oral Tablet Take by mouth every 4 hours as needed for Pain. with food 100 Tab 5 Nebulizers (NEBULIZER COMPRESSOR) MISC Inhale via nebulizer. Use as directed. pls include all necessary tubing 1 Each 1 loratadine (CLARITIN) 10 MG Tablet Take 1 [...] tablets in 24 hours 6 Tab 1 Cyclobenzaprine HCl 10 MG Oral Tablet [...] HOURS NEEDED FOR WHEEZING 75 mL 5 Cyanocobalamin 1000 MCG Oral Tablet Take 1 Tablet by mouth in the morning. 90 Tablet 1 Escitalopram Oxalate 10 MG Oral Tablet (Lexapro) TAKE 1 TABLET BY MOUTH EVERY DAY IN THE MORNING 90Tablet 3 Nirmatrelvir&Ritonavir 300/100 20 x 150 MG & 10 x 100MG Oral Tablet Therapy Pack (Paxlovid)Take 2 pink tablets of Nirmatrelvir and 1 white tablet of Ritonavir two times a day by mouth. (Patient not taking: Reported on 08/07/2023) 30 Tablet 0 Trulicity 0.75 MG/0.5ML Subcutaneous Solution Pen-injector (Dulaglutide) INJECT 0.75MG UNDER THE SKIN ONE TIME PER WEEK 2 mL 2 No current facility-administered medications for this visit. Family History Problem Relation Age of Onset Hypertension Grandmother (Maternal) Other (renal) Grandmother (Maternal) Hypertension Grandfather (Maternal) No Past Hx Mother Cancer Father nonHodgkins Review of Systems: Review of Systems Gastrointestinal: No GI side effects when she was on ozempic in the past Physical Examination: BP 130/72 | Pulse 88 | Temp 36.5 C (97.7 F) (Temporal Artery) | Ht 1.753 m (5' 9") | Wt 127.5 kg (281 lb 1.6 oz) | BMI 41.51 kg/m | BSA 2.49 m Physical Exam Vitals and nursing note reviewed. Constitutional: Appearance: Normal appearance. HENT: Head: Normocephalic and atraumatic. Cardiovascular: Normal rate. Pulmonary: Effort: Pulmonary effort is normal. No respiratory distress. Neurological: Mental Status: Alert and oriented to person, place, and time. Psychiatric: Mood and Affect: Mood normal. Assessment and Recommendation: Abnormal weight gain Body mass index is 41.51 kg/m. Morbid obesity . Discussed weight management options and would like to proceed with medication weight management. Barriers are consistency. Motivators are feeling better, avoiding/reducing comorbid conditions. Patient goals were discussed in detail at visit. IMPORTANT DIETARY CHANGES WHEN TAKING INJECTABLE WEIGHT LOSS MEDICATION PROTEIN!! PROTEIN!! PROTEIN!! Not getting enough protein can contribute to hair thinning, hair loss, muscle loss and fatigue. -Minimum 60g protein per day -Aim for 20g protein per meal -Daily protein goal 60g-100g Work to eat small portions-- larger portions can lead to indigestion, nausea, vomiting, sulfur burps. - Do NOT skip meals--eat small frequent meals/snacks throughout the day - Eat slowly--take 20-30 minutes for each meal - Chew food thoroughly (to applesauce consistency) -Try eating and drinking by 30 min if struggling with intake Foods high in sugar and carbohydrates can lead to diarrhea. - Avoid sugar sweetened drinks including regular sodas, sweet tea, and fruit juice - Eat foods high in lean protein, vegetables, fruits, fiber, & whole grains - Limit processed foods, excess sugar, refined/white carbs, & fried foods PLAN: Goals as above Anti obesity Medication Indications: BMI >30 or BMI >27 with obesity related comorbidity & no apparent contraindications Goal is to lose ~5% wt loss in 3 mo Try for zepbound She will check on coverage with new insurance If no luck-- plan to try mtformin extended realease Wegovy/Saxenda/Zepbound: not sure on coverage-- she has medical assistance now but will lose it in the next 1-2 months Now has insurance BCBS through [facility] bank Try for zepbound Consider ozempic (for a couple months while she has Medical assistance) and then go to [place]-- if coverage for wegovy but not zepbound Ozempic, Victokelsey, Jean Marie, Mounjaro: no coverage without type II diabetes diagnosis Wellbutrin: Naltrexone: Topamax: Phentermine: Xenical: Metformin: would rather try metformin again than the there oral medications due to potential side effects Hui was seen today for weight management. Diagnoses and all orders for this visit: Morbid obesity due to excess calories (HCC) - start Tirzepatide (Zepbound/Mounjaro) -inject 2.5mg subcutaneous once weekly x 4 weeks, then increase to 5 mg subcutaneous once weekly -the imaging aide website has tutorial videos on how to use the pen. If you are unsure or uncomfortable using the pen for the first time, make a nurse visit in our office for teaching. -the imaging aide website offers discount cards to help decrease the cost of the medication - possible side effects of tirzepatide include but are not limited to: GI upset, nausea, vomiting, diarrhea, gallbladder disease, & pancreatitis -Do not use with personal or family history of thryoid cancer, multiple endocrine neoplasia type IIor personal history of pancreatitis -If using oral contraceptives-- switch to a non oral contraceptive method or add a barrier method of contraception for 4 weeks after starting tirzepatide and for 4 weeks after each dose increase. - Zepbound 2.5 MG/0.5ML Subcutaneous Solution Auto-injector (Tirzepatide-Weight Management); Inject2.5 mg under the skin once a week. - Zepbound 5 MG/0.5ML Subcutaneous Solution Auto-injector (Tirzepatide-Weight Management); Inject 5mg under the skin once a week. Do not start before September 04, 2023. Abnormal weight gain Fatty liver Will improve with weight loss AMELIA (generalized anxiety disorder) I spent a total of 42 minutes on the date of service in preparation, delivery, and documentation ofthe care provided to Hui Bernard excluding any time spent in the performance of separately billed services. More than 50% of my time spent with patient providing counseling about the benefits of weight loss, about the patient's nutritional status, detailed explanations about calorie count, types of nutrients to choose, and composition of the meals. Reviewed and discussed weight, weight trendsand pertinent labs and test results. Motivational interview provided in order to prepare the patient to achieve future goals. The patient agreed to try all the plan discussed and return in two months. Patient was instructed to message or call in the meantime with any further concerns or questions. Nati Cruz PA-C, [facility] Nutrition and Weight Management [facility] ([facility]) documented in this encounter Nursing Notes * Torrie Lake MED ASSIST - 08/07/2023 3:10 PM EST Pt verified identity by last name and date. Chief Complaint Patient presents with Weight Management Discuss meds and diet Waist circumference 56.75 inches Neck circumference 15 inches documented in this encounter Plan of Treatment Upcoming Encounters Date Type Department Care Team (Late st Contact Info) Description 11/01/2023 2:40 PM EDT Office Visit General Internal Medicine [facility] [address] [facility] [address] [place] [address] Andrew Max MD [address] [facility] [place] [address] 01/16/2024 3:20 PM EDT Office Visit Nutrition & Weight Management, [facility] [address] [place] [address] Nati Cruz PA-C [address] [place] [address] Health Maintenance Due Date Last Done Comments DISCUSS TOBACCO CESSATION (REFER TO SMARTSET #4758) 1985 GARDASIL-HPV IMMUNIZATION SERIES (2 - 3-dose series) 08/09/2006 07/12/2006 HPV/Co-Test 09/12/2015 *SPIROMETRY ONCE FOR ASTHMA-ADULT 08/28/2016 Depression, Most Recent Score >= 10 (will fire each visit until score < 10) 10/14/2022 10/13/2022 Cervical Cancer Screening 12/22/2022 Pap Smear 12/22/2022 12/23/2019, 12/08, 05/08/2017, Additional history exists COVID-19 Vaccine ( season) 2023 02/09/2021, 01/19/2021 Influenza Vaccine (FLU [...] as of this encounter Visit Diagnoses Diagnosis Morbid obesity due to excess calories (HCC)- Primary Abnormal weight gain Fatty liver Other chronic nonalcoholic liver disease AMELIA (generalized anxiety disorder) Generalized anxiety disorder documented in this encounter Care Teams Behavioral Health Therapist Relationship Specialty Start Date End Date Andrew Max MD [address] [place] [address] PCP - General Internal Medicine 05/27/13 documented as of this encounter
--- OUTSIDE RECORDS SUMMARY | 2023-10-18 11:22 | External Medical Summary | Summary of Care ---
Author Name Unknown Organization [facility] Address [address] [place] [address] Phone [phone] Care Team Providers Care Split Leather Mosser Name Role Phone Andrew Max MD Primary Care Provider + Reason for Visit * Reason Onset Date Comments Forms Request 05/23/2023 Encounter Details Date Type Department Care Team (Late st Contact Info) Description 05/23/2023 Telephone General Internal Medicine [facility] [address] [place] [address] Andrew Max MD [address] [place] [address] Forms Request Allergies Active Allergy Reactions Criticality Noted Date Comments Bee Venom Edema airway High 03/02/2020 Other reaction(s): ANAPHYLAXIS Cinnamon Edema airway High 03/02/2020 Other reaction(s): THROAT SWELLING Penicillins Nausea/vomiting,Rash Low 05/04/2004 Other reaction(s): Unknown Sympathomimetics 05/04/2004 zander d documented as of this encounter (statuses as of 05/25/2023) Medications Medication Sig Dispensed Refills Start Date End Date Status Ibuprofen 200 MG Oral TabletIndications:A cute bilateral low back pain without sciatica Take by mouth every 4 hours as needed for Pain. with food 100 Tab 5 04/12/2017 Active Nebulizers (NEBULIZER COMPRESSOR) MISCIndications:Cou gh,Acute bronchitis, unspecified organism Inhale via nebulizer. Use as directed. pls include all necessary tubing 1 Each 1 03/20/2019 Active loratadine (CLARITIN) 10 MG TabletIndications:S easonal allergic rhinitis due to pollen Take 1 Tab by mouth daily. 30 Tab 11 11/25/2019 Active acetaminophen (TYLENOL) 500 MG Tablet Take 2 Tablets by mouth every 6 hours as needed for Fever (Temp Greater than ). 0 Active Albuterol Sulfate HFA 108 (90 Base) MCG/ACT Inhalation Aerosol SolutionIndications :Mild persistent asthma without complication INHALE 2 PUFFS [...] Active Cyclobenzaprine HCl 10 MG Oral Tablet (Flexeril)Indicatio ns:Chronic bilateral low back pain without sciatica,Hip pain, right Take 1 Tablet by mouth 3 times a day as needed for Pain. 30 Tablet 0 06/08/2021 Active Compressor NebulizerIndication s:Mild persistent asthma without complication Inhale via nebulizer. Use as directed. Please include all necessary tubing and supplies Dx J45.3 1 Each 1 07/21/2021 Active Albuterol Sulfate (2.5 MG/3ML) 0.083% Inhalation Nebulization Solution (Proventil)Indicati ons:Cough,Acute bronchitis, unspecified organism USE 1 VIAL IN NEBULIZER EVERY 6 HOURS NEEDED FOR WHEEZING 75 mL 5 11/24/2021 Active Cyanocobalamin 1000 MCG Oral TabletIndications:V itamin B12 deficiency Take 1 Tablet by mouth in the morning. 90 Tablet 1 10/13/2022 Active Escitalopram Oxalate 10 MG Oral Tablet (Lexapro)Indication s:Recurrent major depressive disorder, in partial remission (HCC),AMELIA (generalized anxiety disorder) TAKE 1 TABLET BY MOUTH EVERY DAY IN THE MORNING 90 Tablet 3 11/14/2022 Active Nirmatrelvir&Ritona vir 300/100 20 x 150 MG & 10 x 100MG Oral Tablet Therapy Pack (Paxlovid)Indicatio ns:COVID-19 virus infection Take 2 pink tablets of Nirmatrelvir and 1 white tablet of Ritonavir two times a day by mouth. 30 Tablet 0 04/28/2023 Active documented as of this encounter (statuses as of 05/25/2023) Active Problems Problem Noted Date Diagnosed Date [...] as of this encounter (statuses as of 05/25/2023) Resolved Problems Problem Noted Date Diagnosed Date [...] appts; pt saw MFM at 25wks. Negative [id number] , normal first 08/22/201304/11 Obesity complicating 08/22/2013 [...] quit @21wks-continues to smoke-no change in quantity @57i2b-nm change in smoking Asthma with severity to be determined 12/31/2009 01/24/2013 Overview: Per Asthma Taxonomy ICD-10 update of inactive term CONTRACEPT PILL SURVEILL 12/22/2005 Asthma, allergic 12/31/2009 documented as of this encounter (statuses as of 05/25/2023) Immunizations Name Administration Dates Next Due COVID-19 mRNA, LNP-s, No Pre serve, 2-Dose Series ([employer]) 02/09/2021,01/19/2021 DTP Vaccine 04/25/2014 HPV Vaccine, 4-Valent 07/12/2006 Haemophilius B (HIB), unspecified 09/21/1987 Hepatitis B, 20+ yrs 11/10/1997,09/09/1997,06/05 PPD 06/04/2017,05/17/2006,06/16/1986 Pneumococcal Conjugate Vacci ne, 20-valent ([id number]) 04/05/2022 Pneumococcal Polysaccharide PPV23 (Pneumovax) 03/10/2020 SEASONAL [...] on file documented as of this encounter Miscellaneous Notes * Telephone Encounter - Dave Penn CMA - 05/25/2023 3:48 PM EST Patient aware and verbalized understanding, placed at 2nd floor patient waste picker * Telephone Encounter - Dave Penn CMA - 05/25/2023 3:46 PM EST Received FMLA form for patient, form completed and ready for waste picker. Has been faxed to jose luisalysha lynch documented in this encounter Plan of Treatment Upcoming Encounters Date Type Department Care Team (Late st Contact Info) Description 11/01/2023 2:40 PM EDT Office Visit General Internal Medicine [facility] [address] [facility] [place] [address] Andrew Max MD [address] [facility] [place] [address] Health Maintenance Due Date Last Done Comments DISCUSS TOBACCO CESSATION (REFER TO SMARTSET #[id number]) 1985 GARDASIL-HPV IMMUNIZATION SERIES (2 - 3-dose [...] Not on filedocumented as of this encounter Care Teams Split Leather Mosser Relationship Specialty Start Date End Date Andrew Max MD [address] [place] [address] PCP - General Internal Medicine 05/27/13 documented as of this encounter
--- OUTSIDE RECORDS SUMMARY | 2023-10-18 11:22 | External Medical Summary | Summary of Care ---
Author Name Unknown Organization [facility] Address [address] [place] [address] Phone [phone] Care Team Providers Care Developmental Services Worker Name Role Phone Andrew Max MD Primary Care Provider + Reason for Visit * Reason Onset Date Comments Advice 05/17/2023 Encounter Details Date Type Department Care Team (Late st Contact Info) Description 05/17/2023 Telephone General Internal Medicine [facility] [address] [facility] [place] [address] Andrew Max MD 200 [facility] [place] [address] Advice Allergies Active Allergy Reactions Criticality Noted Date Comments Bee Venom Edema airway High 03/02/2020 Other reaction(s): ANAPHYLAXIS Cinnamon Edema airway High 03/02/2020 Other reaction(s): THROAT SWELLING Penicillins Nausea/vomiting,Rash Low 05/04/2004 Other reaction(s): Unknown Sympathomimetics 05/04/2004 zander d documented as of this encounter (statuses as of 05/18/2023) Medications Medication Sig Dispensed Refills Start Date [...] Active Trulicity 0.75 MG/0.5ML Subcutaneous Solution Pen-injector (Dulaglutide)Indica tions:Fatty liver,Prediabetes,O besity (BMI 30-39.9) Inject 0.75 mg under the skin once a week. 2 mL 0 04/19/2023 Active Nirmatrelvir&Ritona vir 300/100 20 x 150 MG & 10 x 100MG Oral Tablet Therapy Pack (Paxlovid)Indicatio ns:COVID-19 virus infection Take 2 pink tablets of Nirmatrelvir and 1 white tablet of Ritonavir two times a day by mouth. 30 Tablet 0 04/28/2023 Active documented as of this encounter (statuses as of 05/18/2023) Active Problems Problem Noted Date Diagnosed Date [...] as of this encounter (statuses as of 05/18/2023) Resolved Problems Problem Noted Date Diagnosed Date [...] appts; pt saw MFM at 25wks. Negative [id number] , normal first 08/22/201304/11 Obesity complicating 08/22/2013 [...] quit @21wks-continues to smoke-no change in quantity @06k7h-md change in smoking Asthma with severity to be determined 12/31/2009 01/24/2013 Overview: Per Asthma Taxonomy ICD-10 update of inactive term CONTRACEPT PILL SURVEILL 12/22/2005 Asthma, allergic 12/31/2009 documented as of this encounter (statuses as of 05/18/2023) Immunizations Name Administration Dates Next Due COVID-19 mRNA, LNP-s, No Pre serve, 2-Dose Series ([employer]) 02/09/2021,01/19/2021 DTP Vaccine 04/25/2014 HPV Vaccine, 4-Valent 07/12/2006 Haemophilius B (HIB), unspecified 09/21/1987 Hepatitis B, 20+ yrs 11/10/1997,09/09/1997,06/05 PPD 06/04/2017,05/17/2006,06/16/1986 Pneumococcal Conjugate Vacci ne, 20-valent ([id number]) 04/05/2022 Pneumococcal Polysaccharide PPV23 (Pneumovax) 03/10/2020 SEASONAL [...] Telephone Encounter - Dave Penn CMA - 05/18/2023 8:27 AM EST Placed in folder * Telephone Encounter - Andrew Max MD - 05/17/2023 3:57 PM EST I will review letter, please place in my folder * Telephone Encounter - Dave Penn CMA - 05/17/2023 11:36 AM EST Received letter from [facility] stating patient reported medication error on Ozempic, it is not listed what the complication was with ozempic, but looks like patient is taking Trulicity now? documented in this encounter Plan of Treatment Upcoming Encounters Date Type Department Care Team (Late st Contact Info) Description 11/01/2023 2:40 PM EDT Office Visit General Internal Medicine [facility] [place] 200 [facility] [place] [address] Andrew Max MD 200 [facility] [place] [address] Health Maintenance Due Date Last Done Comments DISCUSS TOBACCO CESSATION (REFER TO SMARTSET #[id number]) 1985 GARDASIL-HPV IMMUNIZATION SERIES (2 - 3-dose [...] filedocumented as of this encounter Care Teams Developmental Services Worker Relationship Specialty Start Date End Date Andrew Max MD [address] [facility] [place] [address] PCP - General Internal Medicine 05/27/13 documented as of this encounter
--- OUTSIDE RECORDS SUMMARY | 2023-10-18 11:22 | External Medical Summary | Summary of Care ---
Author Name Unknown Organization [facility] Address [address] [place] [address] Phone [phone] Care Team Providers Care Record Keeper Name Role Phone Andrew Max MD Primary Care Provider + Reason for Visit * Reason Onset Date Comments Advice 05/17/2023 Encounter Details Date Type Department Care Team (Late st Contact Info) Description 05/17/2023 Telephone General Internal Medicine [facility] 200 [facility] [place] [address] Andrew Max MD 200 [facility] [place] [address] Advice Allergies Active Allergy Reactions Criticality Noted [...] appts; pt saw MFM at 25wks. Negative [id number] , normal first 08/22/201304/11 Obesity complicating 08/22/2013 [...] quit @21wks-continues to smoke-no change in quantity @74x1y-fh change in smoking Asthma with severity to be determined 12/31/2009 01/24/2013 Overview: Per Asthma Taxonomy ICD-10 update of inactive term CONTRACEPT PILL SURVEILL 12/22/2005 Asthma, allergic 12/31/2009 documented as of this encounter (statuses as of 05/18/2023) Immunizations Name Administration Dates Next Due COVID-19 mRNA, LNP-s, No Pre serve, 2-Dose Series ([employer] (formerly [employer])) 02/09/2021,01/19/2021 DTP Vaccine 04/25/2014 HPV Vaccine, 4-Valent 07/12/2006 Haemophilius B (HIB), unspecified 09/21/1987 Hepatitis B, 20+ yrs 11/10/1997,09/09/1997,06/05 PPD 06/04/2017,05/17/2006,06/16/1986 Pneumococcal Conjugate Vacci ne, 20-valent ([id number]) 04/05/2022 Pneumococcal Polysaccharide PPV23 (Pneumovax) 03/10/2020 SEASONAL [...] 05/17/2023 11:36 AM EST Received letter from [facility] stating patient reported medication error on Ozempic, it is not listed what the complication was with ozempic, but looks like patient is taking Trulicity now? documented in this encounter Plan of Treatment Upcoming Encounters Date Type Department Care Team (Late st Contact Info) Description 11/01/2023 2:40 PM EDT Office Visit General Internal Medicine [facility] [place] 200 [facility] [place] [address] Andrew Max MD 200 [facility] [place] [address] Health Maintenance Due Date Last Done Comments DISCUSS TOBACCO CESSATION (REFER TO SMARTSET #[id number]) 1985 GARDASIL-HPV IMMUNIZATION SERIES (2 - 3-dose [...] filedocumented as of this encounter Care Teams Record Keeper Relationship Specialty Start Date End Date Andrew Max MD 200 [facility] [place] [address] PCP - General Internal Medicine 05/27/13 documented as of this encounter
--- OUTSIDE RECORDS SUMMARY | 2023-10-18 11:22 | External Medical Summary | Summary of Care ---
Author Name Unknown Organization [facility] Address [address] [place] [address] Phone [phone] Care Team Providers Care Battalion Chief Name Role Phone Andrew Max MD Primary Care Provider + Reason for Visit * Reason Onset Date Comments Appointment 05/04/2023 Return in about 6 months (around 11/02/2023) Encounter Details Date Type Department Care Team (Late st Contact Info) Description 05/04/2023 Telephone General Internal Medicine [facility] 200 [facility] [place] [id number] Andrew Max MD [address] [place] [address] [phone] Appointment (Return in about 6 months (ranjana... Allergies Active Allergy Reactions Criticality Noted Date Comments Bee Venom Edema airway High 03/02/2020 Other reaction(s): ANAPHYLAXIS Cinnamon Edema airway High 03/02/2020 Other reaction(s): THROAT SWELLING Penicillins Nausea/vomiting,Rash Low 05/04/2004 Other reaction(s): Unknown Sympathomimetics 05/04/2004 zander d documented as of this encounter (statuses as of 05/04/2023) Medications Medication Sig Dispensed Refills Start Date [...] as of this encounter (statuses as of 05/04/2023) Active Problems Problem Noted Date Diagnosed Date [...] as of this encounter (statuses as of 05/04/2023) Resolved Problems Problem Noted Date Diagnosed Date [...] appts; pt saw MFM at 25wks. Negative [id number] , normal first 08/22/201304/11 Obesity complicating 08/22/2013 [...] quit @21wks-continues to smoke-no change in quantity @24y9n-ry change in smoking Asthma with severity to be determined 12/31/2009 01/24/2013 Overview: Per Asthma Taxonomy ICD-10 update of inactive term CONTRACEPT PILL SURVEILL 12/22/2005 Asthma, allergic 12/31/2009 documented as of this encounter (statuses as of 05/04/2023) Immunizations Name Administration Dates Next Due COVID-19 mRNA, LNP-s, No Pre serve, 2-Dose Series ([employer]) 02/09/2021,01/19/2021 DTP Vaccine 04/25/2014 HPV Vaccine, 4-Valent 07/12/2006 Haemophilius B (HIB), unspecified 09/21/1987 Hepatitis B, 20+ yrs 11/10/1997,09/09/1997,06/05 PPD 06/04/2017,05/17/2006,06/16/1986 Pneumococcal Conjugate Vacci ne, 20-valent ([id number]) 04/05/2022 Pneumococcal Polysaccharide PPV23 (Pneumovax) 03/10/2020 SEASONAL [...] encounter Miscellaneous Notes * Telephone Encounter - MANUEL Harvey - 05/04/2023 3:09 PM EDT Called pt, sched appt on 10/31 05/04 JAT * Telephone Encounter - MANUEL Somers - 05/04/2023 9:45 AM EDT Schedule Follow up Return in about 6 months (around 11/02/2023) documented in this encounter Plan of Treatment Upcoming Encounters Date Type Department Care Team (Late st Contact Info) Description 11/01/2023 2:40 PM EDT Office Visit General Internal Medicine [facility] [place] [address] [place] [address] Andrew Max MD 200 [facility] [place] [address] Health Maintenance Due Date Last Done Comments DISCUSS TOBACCO CESSATION (REFER TO SMARTSET #[id number]) 1985 GARDASIL-HPV IMMUNIZATION SERIES (2 - 3-dose [...] filedocumented as of this encounter Care Teams Battalion Chief Relationship Specialty Start Date End Date Andrew Max MD 200 [facility] [place] [address] PCP - General Internal Medicine 05/27/13 documented as of this encounter
--- OUTSIDE RECORDS SUMMARY | 2023-10-18 11:22 | External Medical Summary | Summary of Care ---
Author Name Unknown Organization [facility] Address [address] [place] [address] Phone [phone] Care Team Providers Care Motor Builder Winder Name Role Phone Andrew Max MD Primary Care Provider + Encounter Details Date Type Department Care Team (Late st Contact Info) Description 04/28/2023 Telephone Family Practice [facility] 200 [place] [address] Alyssa Alfonso MD [address] [place] [address] Allergies Active Allergy Reactions Criticality Noted Date Comments Bee Venom Edema airway High 03/02/2020 Other reaction(s): ANAPHYLAXIS Cinnamon Edema airway High 03/02/2020 Other reaction(s): THROAT SWELLING Penicillins Nausea/vomiting,Rash Low 05/04/2004 Other reaction(s): Unknown Sympathomimetics 05/04/2004 zander d documented as of this encounter (statuses as of 05/01/2023) Medications Medication Sig Dispensed Refills Start Date End Date Status Ibuprofen 200 MG Oral TabletIndications:Acu te bilateral low back pain without sciatica Take by mouth every 4 hours as needed for Pain. with food 100 Tab 5 04/12/2017 Active Nebulizers (NEBULIZER COMPRESSOR) MISCIndications:Cough ,Acute bronchitis, unspecified organism Inhale via nebulizer. Use as directed. pls include all necessary tubing 1 Each 1 03/20/2019 Active loratadine (CLARITIN) 10 MG TabletIndications:Sea rere allergic rhinitis due to pollen Take 1 Tab by mouth daily. 30 Tab 11 11/25/2019 Active acetaminophen (TYLENOL) 500 MG Tablet Take 2 Tablets by mouth every 6 hours as needed for Fever (Temp Greater than ). 0 Active Albuterol Sulfate HFA 108 (90 Base) MCG/ACT Inhalation Aerosol SolutionIndications:M ild persistent asthma without complication INHALE 2 PUFFS [...] Active Cyclobenzaprine HCl 10 MG Oral Tablet (Flexeril)Indications :Chronic bilateral low back pain without sciatica,Hip pain, right Take 1 Tablet by mouth 3 times a day as needed for Pain. 30 Tablet 0 06/08/2021 Active Compressor NebulizerIndications: Mild persistent asthma without complication Inhale via nebulizer. Use as directed. Please include all necessary tubing and supplies Dx J45.3 1 Each 1 07/21/2021 Active Albuterol Sulfate (2.5 MG/3ML) 0.083% Inhalation Nebulization Solution (Proventil)Indication s:Cough,Acute bronchitis, unspecified organism USE 1 VIAL IN NEBULIZER EVERY 6 HOURS NEEDED FOR WHEEZING 75 mL 5 11/24/2021 Active Cyanocobalamin 1000 MCG Oral TabletIndications:Vit raphael B12 deficiency Take 1 Tablet by mouth in the morning. 90 Tablet 1 10/13/2022 Active Escitalopram Oxalate 10 MG Oral Tablet (Lexapro)Indications: Recurrent major depressive disorder, in partial remission (HCC),AMELIA (generalized anxiety disorder) TAKE 1 TABLET BY MOUTH EVERY DAY IN THE MORNING 90 Tablet 3 11/14/2022 Active Ozempic (2 MG/DOSE) 8 MG/3ML Subcutaneous Solution Pen-injector (Semaglutide (2 MG/DOSE))Indications: Body mass index (BMI) of 40.0 to 44.9 in adult (HCC),Pre-diabetes INJECT 0.75 ML UNDER THE SKIN ONCE A WEEK. 9 mL 1 02/21/2023 Active Trulicity 0.75 MG/0.5ML Subcutaneous Solution Pen-injector (Dulaglutide)Indicati ons:Fatty liver,Prediabetes,Obe sity (BMI 30-39.9) Inject 0.75 mg under the skin once a week. 2 mL 0 04/19/2023 Active documented as of this encounter (statuses as of 05/01/2023) Active Problems Problem Noted Date Diagnosed Date [...] as of this encounter (statuses as of 05/01/2023) Resolved Problems Problem Noted Date Diagnosed Date [...] appts; pt saw MFM at 25wks. Negative [id number] , normal first 08/22/201304/11 Obesity complicating 08/22/2013 [...] quit @21wks-continues to smoke-no change in quantity @82z9y-qc change in smoking Asthma with severity to be determined 12/31/2009 01/24/2013 Overview: Per Asthma Taxonomy ICD-10 update of inactive term CONTRACEPT PILL SURVEILL 12/22/2005 Asthma, allergic 12/31/2009 documented as of this encounter (statuses as of 05/01/2023) Immunizations Name Administration Dates Next Due COVID-19 mRNA, LNP-s, No Pre serve, 2-Dose Series ([employer]) 02/09/2021,01/19/2021 HPV Vaccine, 4-Valent 07/12/2006 Haemophilius B (HIB), unspecified 09/21/1987 Hepatitis B, 20+ yrs 11/10/1997,09/09/1997,06/05 PPD 06/04/2017,05/17/2006,06/16/1986 Pneumococcal Conjugate Vacci ne, 20-valent ([id number]) 04/05/2022 Pneumococcal Polysaccharide PPV23 (Pneumovax) 03/10/2020 SEASONAL [...] money to buy more. Never true 04/28/20 Within the past 12 months, t he [...] encounter Miscellaneous Notes * Telephone Encounter - Ángela Miles LPN - 04/28/2023 1:24 PM EDT Pt is returning phone call and states that she states that she tested positive via home covid test Monday04/26/23. Would like appt to discuss how to treat her sx. Reports that she has chest congestion and tightness in her lungs with deep breaths. Denies SOB. Appt was changed to a VV. FYI. * Telephone Encounter - Vale Bonds LPN - 04/28/2023 12:52 PM EDT Left message for pt to call back. Please get more information regarding her appt today - note just says "covid" documented in this encounter Plan of Treatment Upcoming Encounters Date Type Department Care Team (Late st Contact Info) Description 05/03/2023 12:40 PM EDT Telemedicine General Internal Medicine [facility] [place] [address] [facility] [place] [address] Andrew Max MD 200 [facility] [place] [address] Health Maintenance Due Date Last Done Comments DISCUSS TOBACCO CESSATION (REFER TO SMARTSET #[id number]) 1985 GARDASIL-HPV IMMUNIZATION SERIES (2 - 3-dose series) 08/09/2006 07/12/2006 HPV/Co-Test 09/12/2015 *SPIROMETRY ONCE FOR ASTHMA-ADULT 08/28/2016 Depression, Most Recent Score >= 10 (will fire each visit until score < 10) 10/14/2022 10/13/2022 Cervical Cancer Screening 12/22/2022 Pap Smear 12/22/2022 12/23/2019, 12/08, 05/08/2017, Additional history exists COVID-19 Vaccine (3 2022- season) 2023 02/09/2021, 01/19/2021 Influenza Vaccine (FLU shot) (#1) 2023 04/05/2022, 06/08/2021, 03/10/2020, Additional history exists DTaP,Tdap,and Td Vaccines (7 - Td or Tdap) 04/25/2024 04/25/2014, 08/29/2013, 04/30/2002, Additional history exists Diabetes Screening 10/11/2025 10/11/2022, [...] filedocumented as of this encounter Care Teams Motor Builder Winder Relationship Specialty Start Date End Date Andrew Max MD [address] [place] [address] PCP - General Internal Medicine 05/27/13 documented as of this encounter
--- OUTSIDE RECORDS SUMMARY | 2023-10-18 11:22 | External Medical Summary | Summary of Care ---
Author Name Unknown Organization [facility] Address [address] [place] [address] Phone [phone] Care Team Providers Care Terrestrial Ecologist Name Role Phone Andrew Max MD Primary Care Provider + Reason for Visit * Reason Comments Acute COVID Encounter Details Date Type Department Care Team Description 04/28/2023 Telemedicine [facility] [address] [place] [address] Alyssa Alfonso MD [address] [place] [address] COVID-19 virus infection*; Mild intermittent asthma without complication; Class 3 severe obesity due to excess calories with body mass index (BMI) of 40.0 to 44.9 in adult, unspecified whether serious comorbidity present (HCC) Allergies Active Allergy Reactions Severity Noted Date Comments Bee Venom Edema airway High 03/02/2020 Other reaction(s): ANAPHYLAXIS Cinnamon Edema airway High 03/02/2020 Other reaction(s): THROAT SWELLING Penicillins Nausea/vomiting,Rash Low 05/04/2004 Other reaction(s): Unknown Sympathomimetics 05/04/2004 zander d documented as of this encounter (statuses as of 04/28/2023) Medications Medication Sig Dispensed Refills Start Date [...] 8 MG/3ML Subcutaneous Solution Pen-injector (Semaglutide (2 MG/DOSE))Indication s:Body mass index (BMI) of 40.0 to 44.9 [...] as of this encounter (statuses as of 04/28/2023) Active Problems Problem Noted Date Common bile duct dilation 10/13/2022 Restless legs syndrome (RLS) 12/08/2021 Recurrent major depressive disorder, in partial remission 01/13/2021 Overview: With anxious distress Chronic migraine 12/08/2020 Fatty liver 10/27/2020 Osteitis condensans ilii 10/27/2020 Tobacco use disorder 08/23/2019 AMELIA (generalized anxiety disorder) 08/07 Seasonal allergic rhinitis due to pollen 03/16/2019 Obesity (BMI 30-39.9) 04/18/2017 Overview: Per Obesity protocol #1 Asthma, mild persistent 01/24/2013 documented as of this encounter (statuses as of 04/28/2023) Resolved Problems Problem Noted Date Resolved Date Major depressive disorder with single episode 12/22/2021 Pre-diabetes 10/27/2020 10/20/2022 Former tobacco use 04/28/2020 12/08/2020 Current moderate episode of major depressive disorder without prior episode 08/07/2019 12/08/2021 ADVANCE DIRECTIVE INFORMATION 03/26/2014 Overview: Yes, Patient instructed to provide copy of advance directive for provider to review and to be scanned into Electronic Medical Record Obesity, Class II, BMI 35-39.9, isolated (see ac tual BMI) 03/26/2014 04/21/2017 Overview: Per Obesity protocol #1 Abnormal quad screen 01/07/2014 06/19/2019 Overview: Risk of DS 1/200 MFM consult placed Recommended Materni 21, had not decided yet Positive screening test 12/17/2013 05/08/2014 Overview: + Quad screen- DS-pt had cancelled MFM appts; pt saw MFM at 25wks. Negative [id number] , normal first 08/22/2013 05/08/20 14 Obesity complicating 08/22/2013 1 Overview: BMI: 39.23 kg/m at NOB -early 1hr gtt- elevated, needs 3hr gtt-normal -Recommend Maternal Medicine ultrasound for growth every 6 to 8 weeks after 24 weeks. -For patients with Class 3 obesity, we recommend surveillance twice weekly to begin at 32 weeks and delivery by EDC. Tobacco use in 08/22/2013 014 Overview: Smoking 1/2 pdd at NOB; intends to quit @21wks-continues to smoke-no change in quantity @54y4c-ou change in smoking Asthma with severity to be determined 12/31/2009 01/24/2013 Overview: Per Asthma Taxonomy ICD-10 update of inactive term CONTRACEPT PILL SURVEILL 12/22/2005 013 Asthma, allergic 12/31/2009 documented as of this encounter (statuses as of 04/28/2023) Immunizations Name Administration Dates Next Due COVID-19 mRNA, LNP-s, No Pre serve, 2-Dose Series ([employer]) 02/09/2021,01/19/2021 HPV Vaccine, 4-Valent 07/12/2006 Haemophilius B (HIB), unspecified 09/21/1987 Hepatitis B, 20+ yrs 11/10/1997,09/09/1997,06/05 PPD 06/04/2017,05/17/2006,06/16/1986 Pneumococcal Conjugate Vacci ne, 20-valent ([id number]) 04/05/2022 Pneumococcal Polysaccharide PPV23 (Pneumovax) 03/10/2020 SEASONAL [...] = 0.6 oz pur e alcohol) rarely Alcohol Habits Answer Date Recorded How often do you have a drink containing alcohol ? Never 08/13/2018 How many drinks containing a lcohol do you have on a typical day when you are drinking? Not asked How often do you have six or more drinks on one occasion? Not asked Food Insecurity Answer Date Recorded Within the past 12 months, y ou worried that your food would run out before you got money to buy more. Never true 04/28/2023 Within the past 12 months, t he food you bought just didn't last and you didn't have money to get more. Never true 04/28/2023 Sex Assigned at Date Recorded Female 06/19/2019 3:[address] Job Start Date Occupation Industry Not on file Not on file Not on file documented as of this encounter Progress Notes * Alyssa Alfonso MD - 04/28/2023 2:40 PM EDT Patient location: HOME. I was in a hospital or clinic location. After connecting through [employer],patient was verified with two unique identifiers. Patient (or authorized legal outside medical sales representative) was then informed that this was a Telemedicine visit and being conducted confidentially over secure lines. Methods to assure confidentiality were taken. Patient acknowledged consent and understanding of pr ivacy and security of the Telemedicine visit. The patient agreed to participate. Subjective Chief Complaint Patient presents with Acute COVID HPI: Hui Bernard is a 37 year old female. The following issues were addressed today: Patient states she tested positive for COVID on Monday evening. Symptoms started Monday earlier in the day. Having a lot of nasal congestion, cough, and sore throat. Has had a fever on and off, up to 102F. States she has had some chest tightness but no shortness of breath or chest pain. She has been taking Dayquil and Tylenol. Has mild intermittent asthma. States she has not needed to use rescue inhaler or nebulizer. States she is not having any wheezing. Review of Systems: See HPI Objective There were no vitals taken for this visit. Wt Readings from Last 3 Encounters: 04/19/23 117.9 kg (260 lb) 12/30/22 122.5 kg (270 lb 1.6 oz) 10/13/22 130.9 kg (288 lb 8 oz) BP Readings from Last 3 Encounters: 04/19/23 120/76 12/30/22 102/72 10/13/22 118/78 General: Mildly ill-appearing, no acute distress Respiratory: No conversational dyspnea or audible wheezing Neurological: Alert and oriented Psychiatric: Appropriate mood and affect Assessment & Plan 1. COVID-19 virus infection 2. Mild intermittent asthma without complication 3. Class 3 severe obesity due to excess calories with body mass index (BMI) of 40.0 to 44.9 in adult, unspecified whether serious comorbidity present ([facility]) Discussed that comorbidities of asthma and obesity put her at higher risk of severe infection. Offered Paxlovid and reviewed side effects. She is agreeable; Rx sent to pharmacy. Otherwise, continue supportive care. Patient encouraged to rest and maintain adequate hydration. Can use OTC pain relievers and saline nasal rinse as needed. Patient advised to monitor symptoms and seek medical attention if experiencing high fever, difficulty breathing, or chest pain. Follow Up: Return if symptoms worsen or fail to improve. This note was electronically signed by Alyssa Alfonso MD documented in this encounter Plan of Treatment Upcoming Encounters Date Type Specialty Care Team Description 05/03/2023 Office Visit Internal Medicine Andrew Max MD [address] [place] [address] Health Maintenance Due Date Last Done Comments DISCUSS TOBACCO CESSATION (REFER TO SMARTSET #2899) 1985 GARDASIL-HPV IMMUNIZATION SERIES (2 - 3-dose [...] as of this encounter Visit Diagnoses Diagnosis COVID-19 virus infection- Primary Mild intermittent asthma without complication Unspecified asthma Class 3 severe obesity due to excess calories with body mass index (BMI) of 40.0 to 44.9 in adult, unspecified whether serious comorbidity present (HCC) documented in this encounter Care Teams Terrestrial Ecologist Relationship Specialty Start Date End Date Andrew Max MD [address] [place] [address], [place] [address] PCP - General Internal Medicine 05/27/13 documented as of this encounter
--- OUTSIDE RECORDS SUMMARY | 2023-10-18 11:22 | External Medical Summary | Summary of Care ---
Author Name Unknown Organization [facility] Address [address] [place] [address] Phone [phone] Care Team Providers Care New Accounts Banking Representative Name Role Phone Andrew Martinez MD Primary Care Provider + Reason for Visit * Reason Comments eRx-Medication Refill Encounter Details Date Type Department Care Team (Late st Contact Info) Description 05/25/2023 Refill General Internal Medicine [facility] [address] [facility] [place] [id number] Andrew Martinez MD [address] [facility] [place] [address] Fatty liver; Prediabetes; Obesity (BMI 30-39.9) Allergies Active Allergy Reactions Criticality Noted Date [...] THE MORNING 90 Tablet 3 11/14/2022 Active Nirmatrelvir&Adolph navir 300/100 20 x 150 MG & 10 x 100MG Oral Tablet Therapy Pack (Paxlovid)Indicat ions:COVID-19 virus infection Take 2 pink tablets of Nirmatrelvir and 1 white tablet of Ritonavir two times a day by mouth. 30 Tablet 0 04/28/2023 Active Trulicity 0.75 MG/0.5ML Subcutaneous Solution Pen-injector (Dulaglutide)Doris cations:Fatty liver,Prediabetes ,Obesity (BMI 30-39.9) INJECT 0.75MG UNDER THE SKIN ONE TIME PER WEEK 2 mL 2 05/25/2023 Active Trulicity 0.75 MG/0.5ML Subcutaneous Solution Pen-injector (Dulaglutide)Doris cations:Fatty liver,Prediabetes ,Obesity (BMI 30-39.9) Inject 0.75 mg under the skin once a week. 2 mL 0 04/19/2023 05/25/20 23 Discontinued documented as of this encounter (statuses [...] appts; pt saw MFM at 25wks. 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/22/2005 Asthma, allergic 12/31/2009 documented as of this encounter (statuses as of 05/25/2023) Immunizations Name Administration Dates Next Due COVID-19 mRNA, LNP-s, No Pre serve, 2-Dose Series ([employer]) 02/09/2021,01/19/2021 DTP Vaccine 04/25/2014 HPV Vaccine, 4-Valent 07/12/2006 Haemophilius B (HIB), unspecified 09/21/1987 Hepatitis B, 20+ yrs 11/10/1997,09/09/1997,06/05 PPD 06/04/2017,05/17/2006,06/16/1986 Pneumococcal Conjugate Vacci ne, 20-valent ([id number]) 04/05/2022 Pneumococcal Polysaccharide PPV23 (Pneumovax) 03/10/2020 SEASONAL [...] encounter Miscellaneous Notes * Telephone Encounter - Nena Bowers, [facility] - 05/25/2023 2:27 PM ESTSigned Prescriptions: Disp Refills Trulicity 0.75 MG/0.5ML Subcutaneous Solut*2 mL 2 Sig: INJECT 0.75MG UNDER THE SKIN ONE TIME PER WEEKAuthorizing Provider: ANDREW MARTINEZ User: NENA BOWERS documented in this encounter Plan of Treatment Upcoming Encounters Date Type Department Care Team (Late st Contact Info) Description 11/01/2023 2:40 PM EDT Office Visit General Internal Medicine [facility] [place] [address] [facility] [place], [place] [address] Andrew Martinez MD [address] [facility] [place] [address] Health Maintenance Due Date Last Done Comments DISCUSS TOBACCO CESSATION (REFER TO SMARTSET #3105) 1985 GARDASIL-HPV IMMUNIZATION SERIES (2 - 3-dose series) 08/09/2006 07/12/2006 HPV/Co-Test 09/12/2015 *SPIROMETRY ONCE FOR ASTHMA-ADULT 08/28/2016 Depression, Most Recent Score >= 10 (will fire each visit until score < 10) 10/14/2022 10/13/2022 Cervical Cancer Screening 12/22/2022 Pap Smear 12/22/2022 12/23/2019, 12/08, 05/08/2017, Additional history exists COVID-19 Vaccine (3 season) 2023 02/09/2021, 01/19/2021 Influenza Vaccine (FLU [...] as of this encounter Visit Diagnoses Diagnosis Fatty liver Other chronic nonalcoholic liver disease Prediabetes Other abnormal glucose Obesity (BMI 30-39.9) Obesity, unspecified documented in this encounter Care Teams New Accounts Banking Representative Relationship Specialty Start Date End Date Andrew Martinez MD [address] [facility] [place] [address] PCP - General Internal Medicine 05/27/13 documented as of this encounter
--- NOTE | 2023-10-18 11:38 | History & Physical Bridge Note ---
Date of Service October 18, 2023 History & Physical Bridge Note I have examined the patient, reviewed the History & Physical and in the interval since the performance of the History & Physical I have noted the following changes of clinical significance: no changes noted
[2023-10-18] MEDS: cefOXitin 2,000 MG in DEXTROSE 5 % MINI-B 50 ML IV STA (11:58)
[2023-10-18] MEDS ORDERED: SUCCINYLCHOLINE CHLORIDE 20 MG/ML 10 ML VIAL IV ONE (12:00)
[2023-10-18] MEDS ORDERED: SUGAMMADEX SODIUM 200 MG/2 ML VIAL IV ONE (13:14)
[2023-10-18] MEDS: IOVERSOL 50ml IV ONE (13:28)
[2023-10-18] MEDS ORDERED: KETOROLAC 30 MG/ML VIAL ONE (13:39)
--- NOTE | 2023-10-18 13:51 | Post Operative Brief Note ---
Immediate Post Op Note v1 Date of Surgery October 18, 2023 Pre & Post Diagnosis Operation Date: 10/18/23 11:25 Pre-Op Diagnosis: Acute Calculous Cholecystitis Post-Op Diagnosis: Acute Calculous Cholecystitis I identified the patient and participated in the time-out.: Yes Procedure Operation Date: 10/18/23 11:25 Actual Procedures p Laparoscopic Cholecystectomy with Intraoperative Cholangiogram(Not Applicable) - Nakul De Guzman MD Surgeon Nakul De Guzman MD It Program Manager DONA Bueno; assisted with camera, tissue retraction, closure Estimated Blood Loss 5 Findings Consistent with Post-Op Diagnosis Drains Niles-Mejía Drain
[2023-10-18] MEDS ORDERED: LABETALOL HCL IV 5 MG/ML 20ML IV ONE (14:07)
--- NOTE | 2023-10-18 14:21 | Fluoroscopy Report ---
[place] cholangiogram OR HISTORY: 38 years-old Female CHOLANGIOGRAM COMPARISON: Abdominal ultrasound of same day TECHNIQUE: 4 spot fluoroscopic images of the right upper quadrant abdomen were obtained utilizing 40. 1 seconds fluoroscopy time. 13.81 mGy FINDINGS: Surgical clips in the blaise hepatis. Cannulation of the cystic duct with injection of contrast. There is focal apparent narrowing within the proximal common bile duct of unknown etiology or significance . There is prominent dilation of the common bile duct distal to this area. Contrast is also noted wit hin the duodenum and pancreatic duct. IMPRESSION: Fluoroscopic assistance as above. ACT 112: Negative or not required by law. The above report was generated using voice recognition software. It may contain grammatical, syntax o r spelling errors. Electronically signed by: Rohith Curtis M.D. 10/18/2023 2:20 PM
--- NOTE | 2023-10-18 14:43 | Anesthesiology Progress Note ---
Date of Service October 18, 2023 Anesthesia Post Procedure Vital Signs Vital Signs: Temp Pulse Pulse Resp BP BP Pulse Ox 10/18/23 14:40 69 18 134/87 96 10/18/23 14:30 62 19 145/91 H 95 10/18/23 14:20 66 19 134/94 95 10/18/23 14:10 76 21 142/101 H 99 10/18/23 14:03 36.0 C L 61 22 133/89 99 10/18/23 11:39 37.0 C 78 20 142/90 H 98 10/18/23 10:56 10/18/23 10:28 74 18 121/91 97 10/18/23 09:00 63 19 140/88 97 10/18/23 08:00 76 18 98 10/18/23 07:00 69 16 97 10/18/23 03:41 71 10/18/23 03:36 73 18 137/89 98 10/18/23 00:48 36.8 C 92 H 18 135/99 97 Pulse Ox O2 Del Method O2 Del Method O2 Flow Rate 10/18/23 14:40 Room Air 10/18/23 14:30 Room Air 10/18/23 14:20 Room Air 10/18/23 14:10 Oxymask 5 10/18/23 14:03 Oxymask 5 10/18/23 11:39 Room Air 10/18/23 10:56 97 Room Air 10/18/23 10:28 Room Air 10/18/23 09:00 10/18/23 08:00 10/18/23 07:00 10/18/23 03:41 10/18/23 03:36 Room Air 10/18/23 00:48 Room Air Pain Intensity Upper Medial Abdomen: Pain Intensity: 2 Transfer of Care Handoff Completed per policy Notes Mental Status: alert / awake / arousable Patient Amnestic to Procedure: Yes Nausea / Vomiting: adequately controlled Pain: adequately controlled Airway Patency, RR, SpO2: stable & adequate BP & HR: stable & adequate Hydration State: stable & adequate Anesthetic Complications: no major complications apparent and Pt Satisfied with anesthetic care
[2023-10-18] MEDS: fentaNYL citrate PF 100 MCG/2 ML VIAL IV PRN (14:49)
[2023-10-18] MEDS: BUPIVACAINE/EPINEPHRINE 0.25% 1:200,000 30 ML VIAL ONE (16:16)
[2023-10-18] MEDS ORDERED: oxyCODONE/ACETAMINOPHEN 5mg/325mg TAB PO PRN (16:23)
[2023-10-18] MEDS ORDERED: diphenhydrAMINE Capsule 25 MG CAP PO PRN (16:23)
--- NOTE | 2023-10-18 16:26 | Operative Report ---
Post Operative Report Pre & Post Diagnosis Operation Date: 10/18/23 11:25 Pre-Op Diagnosis: Acute Calculous Cholecystitis Post-Op Diagnosis: Acute Calculous Cholecystitis I identified the patient and participated in the time-out.: Yes Procedure Operation Date: 10/18/23 11:25 Actual Procedures p Laparoscopic Cholecystectomy with Intraoperative Cholangiogram(Not Applicable) - Nakul De Guzman MD Surgeon Nakul De Guzman MD Vice President Quality DONA Bueno; assisted with camera, tissue retraction, closure Estimated Blood Loss 5 Findings Consistent with Post-Op Diagnosis Intraoperative cholangiogram demonstrates dilated cystic duct, common bile duct, hepatic ducts. No evidence of filling defect within the common bile duct. Contrast flowed into the duodenum fairly easily. Specimens Gallbladder Drains 15 Albanian round LORENZA Anesthesia Type General Complications No immediate complications Description of Procedure The patient was taken to the operating room, and placed supine on the operating table. A timeout was performed, perioperative antibiotics were administered, SCD boots were placed. After adequate anesthesia and analgesia was obtained, the abdomen was prepped and draped in the normal sterile fashion. Local anesthetic was injected into and around the proposed incision sites. An incision was made with a 15 blade scalpel in the supraumbilical region and carried down to the level of the fascia. The fascia was grasped with a trach hook, and a varies needle was used to enter the abdominal cavity. The abdomen was insufflated to a pressure of 15 mmHg, and a 11 mm trocar was placed in this location. A 10 mm, 30 degree laparoscope was placed into the abdominal cavity, and the abdomen was surveyed. The gallbladder was quite distended and taut, and demonstrated evidence of acute inflammation. Two 5 mm trochars were placed along the right costal margin, and one 5 mm trocar was placed in the subxiphoid region under direct visualization. The gallbladder was grasped and retracted cephalad and laterally, exposing the triangle of Calot. Dissection began in the triangle with a combination of blunt dissection with the [place] dissector, and judicious use of the hook cautery. The cystic duct and cystic artery were dissected free circumferentially, and a critical view of safety was obtained. The cystic duct was quite distended, and the decision was made to proceed with cholangiogram. The cystic artery was clipped and transected to facilitate exposure of the cystic duct. A clip was placed across the cystic duct distally and a ductotomy was accomplished with the laparoscopic scissors. A catheter was threaded into the cystic duct and secured into place. A cholangiogram was performed, which demonstrated the findings as listed above. Once is complete, the catheter was removed, the cystic duct was doubly clipped proximally and was transected. The gallbladder was removed from the gallbladder fossa with the hook cautery. The camera was switched to a 5 mm, the gallbladder was placed in an Endo Catch bag, and removed via the supraumbilical port site. The camera was switched back to the 10 mm camera, and the abdomen was surveyed again. Hemostasis was checked and attended, and was excellent. The abdomen was copiously irrigated and suctioned free. Again hemostasis was checked and was excellent. Due to the dilated ducts, and the significant back pressure noted upon catheter removal from the cystic duct, the decision was made to leave a drain. A 15 Albanian round LORENZA drain was placed through the lateral incision site and was secured in place with a 3-0 nylon suture. All trochars were removed under direct visualization. The abdomen was desufflated. The fascia in the 11 mm port site was closed with a 0 Vicryl suture. The skin was closed with a running 4-0 Monocryl subcuticular stitch. Dermabond was applied. The patient tolerated the procedure without complication, and was transferred in stable condition to the PACU. All instrument, needle, and sponge counts were correct at the end of the case. My life enrichment assistant was necessary throughout the procedure for tissue retraction, possible camera operation, and closure of the wounds. I understand that section 1842(b)(7)(D) of the Social Security act generally prohibits Medicare physician fee schedule payment for the services of assistants at surgery in teaching hospitals when qualified residents are available to furnish such services. I certify that the services for which payment is claimed were medically necessary and that no qualified resident was available to perform the services. I further understand that these services are subject to postpayment review by the Medicare carrier. I attest to the content of the Intraoperative Record and any orders documented therein. Any exceptions are noted below.
[2023-10-18] MEDS: KETOROLAC 30 MG/ML VIAL IV PRN (16:35)
[2023-10-18] MEDS: ONDANSETRON INJ 2 MG/ML 2 ML VIAL IV PRN (20:46)
[2023-10-18] MEDS: oxyCODONE/ACETAMINOPHEN 5mg/325mg TAB PO PRN (20:47)
[2023-10-19] MEDS: ENOXAPARIN INJ 40 MG/0.4 ML SYR SQ SCH (06:05)
[2023-10-19] MEDS: PROMETHAZINE HCL 12.5 MG in SODIUM CHLORIDE 0.9% 50 ML IV PRN (06:33)
--- NOTE | 2023-10-19 10:00 | Surgery Progress Note ---
Date of Service October 19, 2023 Assessment & Plan (1) Acute calculous cholecystitis: Plan: POD# 1 s/p lap arline avss postop pain controlled minimal chi drain output serosanguineous, nonbilious t. bili /lfts/alk phos all wnl Plan: continue pain management adat encouraged ambulating hallway incentive spirometry possible d/c this evening Dr. De Guzman has seen and examined pt, agrees with above. Admission and Anticipated Discharge Date Admission Date: October 18, 2023 Subjective postop pain controlled tolerated full liquids no n,v ambulating to bathroom felt slightly dizzy/lightheaded some difficulty taking deep breath due to gas pain/abdominal pain has not ambulated hallway Physical Exam Constitutional: WD/WN, vitals as above + obese, cooperative and comfortable; no acute distress and not ill appearing Respiratory: normal respiratory effort; no respiratory distress and no labored breathing Gastrointestinal (Abdomen): Inspection/Auscultation: abdomen normal to inspection, normal bowel sounds, + abdominal surgical incision (c/d/i with dermabond) and + abdominal surgical drain present (minimal serosangunieous); abdomen not distended Percussion/Palpation: + abdomen tender (at incision sites and drain site) and abdomen soft; no guarding, abdomen not rigid and abdomen not firm Skin: no rashes, warm and dry no jaundice Psychiatric: A+Ox3, euthymic affect Results & Data Vital Signs (Past 12 Hours) Vital Signs Temp Pulse Resp BP Pulse Ox O2 Del Method 10/19/23 08:03 36.8 C 64 18 124/79 93 Room Air 10/19/23 03:44 36.7 C 75 18 109/73 96 Room Air 10/19/23 00:52 Room Air 10/18/23 23:25 36.8 C 73 16 119/75 93 Room Air
[2023-10-19 10:32] LABS: Basophils # (auto) 0.02 K/uL (0.00-0.20); Basophils % (auto) 0.2 %; Eosinophils # (auto) 0.01 K/uL (0.00-0.50); Eosinophils % (auto) 0.1 %; Hematocrit (blood only) 37.9 % (37.0-47.0); Hemoglobin 12.9 g/dl (12.0-16.0); Immature Granulocytes # (auto) 0.07 K/uL (0.01-0.20); Immature Granulocytes % (auto) 0.6 %; Lymphocytes # (auto) 2.44 K/uL (1.20-3.40); Lymphocytes % (auto) 19.7 %; Mean Corpuscular Hemoglobin 32.3 pg (25.0-34.0); Mean Platelet Volume 10.4 fL (9.4-12.4); Monocytes # (auto) 0.87 K/uL (0.11-0.59); Neutrophils % (auto) 72.4 %; Platelet Count 293 K/uL (130-400); RDW Coefficient of Variation 12.3 % (11.5-14.5); RDW Standard Deviation 43.2 fL (36.4-46.3); Red Blood Count 3.99 M/uL (4.20-5.40); White Blood Count 12.41 K/ul (4.8-10.8)
[2023-10-19 10:36] LABS: Albumin Globulin Ratio 1.6 (0.9-2); Albumin Level 3.9 gm/dl (3.4-5.0); Bilirubin,Total 0.6 mg/dl (0.2-1.0); Calcium 8.9 mg/dl (8.6-10.3); Creatinine Clr Calc Pharmacy 136.4 ml/min; Est GFR (African American) 108.4 ml/min; Est GFR (Non-African American) 93.5 ml/min; Globulin 2.5 gm/dl (2.5-4.0); Potassium 3.6 mmol/L (3.5-5.1); Total Protein 6.4 gm/dl (6.0-8.3)
[2023-10-19] MEDS ORDERED: oxyCODONE/ACETAMINOPHEN 5mg/325mg TAB PO PRN (13:16)
[2023-10-19] MEDS: oxyCODONE/ACETAMINOPHEN 5mg/325mg TAB PO PRN (13:33)
[2023-10-19] MEDS: ONDANSETRON INJ 2 MG/ML 2 ML VIAL IV PRN (15:51)
[2023-10-20] MEDS ORDERED: KETOROLAC 30 MG/ML VIAL IV PRN (09:15)
--- NOTE | 2023-10-20 09:44 | Surgery Progress Note ---
Date of Service October 20, 2023 Assessment & Plan (1) Acute calculous cholecystitis: Plan: POD# 2 s/p lap arline avss postop pain controlled minimal chi drain output serosanguineous, nonbilious t. bili /lfts/alk phos all wnl 10/18 Plan: continue pain management adat encouraged ambulating hallway incentive spirometry abdominal binder hopeful d/c this afternoon go home with chi drain, with removal in office on Monday Dr. De Guzman has seen and examined patient Admission and Anticipated Discharge Date Admission Date: October 18, 2023 Subjective pain moderate but controlled, felt like she over did it yesterday with activity no shortness of breath but feeling of some inability to take deep breath after waking up or going to sleep ambulated hallway yesterday and OOB to chair no n,v tolerated diet urinating Physical Exam Constitutional: WD/WN, vitals as above + obese, cooperative and comfortable; no acute distress and not ill appearing Respiratory: normal respiratory effort; no respiratory distress, no labored breathing and no retractions Gastrointestinal (Abdomen): Inspection/Auscultation: abdomen normal to inspection, + abdominal surgical incision (c/d/i with dermabond) and + abdominal surgical drain present (minimal serosanguineous); abdomen not distended Percussion/Palpation: + abdomen tender (at incision sites and drain site) and abdomen soft; no guarding and abdomen not rigid Skin: no rashes, warm and dry no jaundice Psychiatric: Orientation: alert and oriented x 3 Results & Data Vital Signs (Past 12 Hours) Vital Signs Temp Pulse Resp BP Pulse Ox O2 Del Method 10/20/23 07:51 36.8 C 66 16 127/84 96 Room Air 10/20/23 04:35 36.7 C 58 L 16 124/83 90 Room Air 10/20/23 00:30 36.6 C 53 L 16 131/88 96 Room Air
[2023-10-20] MEDS: IBUPROFEN 600 MG TAB PO PRN (10:05)
--- OUTSIDE RECORDS SUMMARY | 2023-10-21 13:29 | External Medical Summary | Summary of Care ---
Author Name Unknown Organization [facility] Address [address] [place] [address] Phone [phone] Care Team Providers Care Galley Boy Name Role Phone Andrew Max MD Primary Care Provider + Encounter Details Date Type Department Care Team (Late st Contact Info) Description 10/18/2023 Result Scan Unspecified Department <No scans attached> Allergies Active Allergy Reactions Criticality Noted Date Comments Bee Venom Edema airway High 03/02/2020 Other reaction(s): ANAPHYLAXIS Cinnamon Edema airway High 03/02/2020 Other reaction(s): THROAT SWELLING Penicillins Nausea/vomiting,Rash Low 05/04/2004 Other reaction(s): Unknown Sympathomimetics 05/04/2004 zander d documented as of this encounter (statuses as of 10/19/2023) Medications Medication Sig Dispensed Refills Start Date [...] Pen-injector (Dulaglutide)Indicati ons:Fatty liver,Prediabetes,Obe sity (BMI 30-39.9) INJECT 0.75MG UNDER THE SKIN ONE TIME PER WEEK 2 mL 2 05/25/2023 Active Zepbound 2.5 MG/0.5ML Subcutaneous Solution Auto-injector (Tirzepatide-Weight Management)Indication s:Morbid obesity due to excess calories (HCC) Inject 2.5 mg under the skin once a week. 2 mL 1 08/07/2023 Active Zepbound 5 MG/0.5ML Subcutaneous Solution Auto-injector (Tirzepatide-Weight Management)Indication s:Morbid obesity due to excess calories (HCC) Inject 5 mg under the skin once a week. Do not start before September 04, 2023. 2 mL 2 09/04/2023 Active documented as of this encounter (statuses as of 10/19/2023) Active Problems Problem Noted Date Diagnosed Date [...] as of this encounter (statuses as of 10/19/2023) Resolved Problems Problem Noted Date Diagnosed Date [...] appts; pt saw MFM at 25wks. 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 Asthma, allergic 12/31/2009 documented as of this encounter (statuses as of 10/19/2023) Immunizations Name Administration Dates Next Due COVID-19 mRNA, LNP-s, No Pre serve, 2-Dose Series (Citelighter) 02/09/2021,01/19/2021 DTP Vaccine 04/25/2014 HPV Vaccine, 4-Valent 07/12/2006 Haemophilius B (HIB), unspecified 09/21/1987 Hepatitis B, 20+ yrs 11/10/1997,09/09/1997,06/05 PPD 06/04/2017,05/17/2006,06/16/1986 Pneumococcal Conjugate Vacci ne, 20-valent ([id number]) 04/05/2022 Pneumococcal Polysaccharide PPV23 (Pneumovax) 03/10/2020 Seasonal [...] Smoking Tobacco: Every Day Cigarettes 0.5 10 Started: 04/16/2010; Last attempted to quit: 04/16/2020 Smokeless Tobacco: [...] on file documented as of this encounter Plan of Treatment Upcoming Encounters Date Type Department Care Team (Late st Contact Info) Description 11/01/2023 2:40 PM EDT Office Visit General Internal Medicine [facility] [place] [address] [place] [address] Andrew Max MD [address] [facility] [place] [id number] 11/07/2023 1:00 PM EDT Office Visit Nutrition & Weight Management, [facility] [address] [place] [place] [address] Nati Cruz PA-C [address] [place] [id number] Health Maintenance Due Date Last Done Comments DISCUSS TOBACCO CESSATION (REFER TO SMARTSET #[id number]) 1985 GARDASIL-HPV IMMUNIZATION SERIES (2 - 3-dose series) 08/09/2006 07/12/2006 HPV/Co-Test 09/12/2015 *SPIROMETRY ONCE FOR ASTHMA-ADULT 08/28/2016 Depression, Most Recent Score >= 10 (will fire each visit until score < 10) 10/14/2022 10/13/2022 Cervical Cancer Screening 12/22/2022 Pap Smear 12/22/2022 12/23/2019, 12/08, 05/08/2017, Additional history exists COVID-19 Vaccine ( season) 2023 02/09/2021, 01/19/2021 Influenza Vaccine (FLU shot) (Season Ended) 2024 04/05/2022, 06/08/2021, 03/10/2020, Additional history exists DTaP,Tdap,and [...] Not on filedocumented as of this encounter Procedures Procedure Name Priority Date/Time Associated Diagnosis Comments PROCEDURE SCANNED RESULT 10/18/2023 documented in this encounter Results * PROCEDURE SCANNED RESULT (10/18/2023) 10/18/2023 No Physician Data Unknown SURGERY documented in this encounter Care Teams Galley Boy Relationship Specialty Start Date End Date Andrew Max MD [address] [place] [address] PCP - General Internal Medicine 05/27/13 documented as of this encounter
--- NOTE | 2023-10-23 13:01 | Discharge Summary ---
Date of Service October 23, 2023 Admission HPI Per Admitting Provider Hui is a 38 year-old female with history of prediabetes previously on Ozempic who presented to emergency department with right upper and epigastric abdominal giuseppe with associated nausea and diarrhea. Pain started Monday afternoon and was sudden and then resolved but appetite is was low and was unable to eat much due to nausea. Intermittent pain. Pain about 4-5 /10 upon presentation and not improving. Had fever Monday evening of 101 but no chills, sweats, vomiting, chest pain, shortness of breath, difficulty urinating, blood in urine, no blood in stools. No history of gallbladder problems in past. No prior abdominal surgeries. Currently states pain is in the right upper abdomen 3-4/10. Has not had any pain medication since being in ED. Very anxious about surgery. Principal Diagnosis acute calculous cholecystitis Discharge Data Allergies Allergy/AdvReac Type Severity Reaction Status Date / Time bee venom protein (honey bee) Allergy Severe ANAPHYLAXIS Verified 10/18/23 01:34 cinnamon Allergy Severe THROAT Unverified 10/18/23 01:34 SWELLING fexofenadine Allergy Mild Unknown Verified 10/18/23 01:34 Penicillins Allergy Mild Rash Verified 10/18/23 12:00 pseudoephedrine Allergy Unknown . Verified 10/18/23 01:34 Procedures Performed Operation Date: 10/18/23 11:25 Actual Procedures p Laparoscopic Cholecystectomy with Intraoperative Cholangiogram(Not Applicable) - Nakul De Guzman MD Ordered Studies 10/18/23 02:03 US gallbladder Stat 10/18/23 13:15 FL cholangiogram OR Routine Hospital Course (1) Acute calculous cholecystitis: Patient was taken to operating room from emergency department for laparoscopic cholecystectomy by Dr. De Guzman on 10/18/2023. Patient found to have acute calculous cholecystitis. Intraoperative cholangiogram was performed as patient had dilated cystic and common bile ducts which showed contrast within the small bowel and up the hepatic ducts. Drain was placed . Patient was transferred to recovery then to medical/surgical floor for postoperative care. Diet advanced as tolerated, activity as tolerated, pain management and antiemetics as needed. POD # 1 avss, postop pain moderate. Encouraged to ambulate and see how pain was controlled. POD # 2 avss, postop pain controlled, tolerated regular diet, chi drain with minimal serous output. Patient was discharged home in evening on POD # 2 in stable condition with chi drain. Total Time Total Time Spent Total Time Spent (In Minutes): 45 minutes Total Time Includes: Examination of the Patient, Discharge Planning and Medication Reconciliation Discharge Plan Discharge Items Patient Disposition: Home - Self-Care Reason For Visit: ACUTE CALCULOUS CHOLECYSTITIS Discharge Diagnosis: acute calculous cholecystitis Activity: Per Instructions section Non-emergency contact: Primary Care Provider and Surgeon Call non-emergency contact if: you have any medication questions, your pain is not controlled, your pain is worsening, your pain is concerning for you, you have a fever, your temperature is above 101, your wound has increased redness, your wound has increased drainage and your wound pain has increased Follow-up/Referrals: Andrew Max MD [Primary Care Provider] - Myrna Bueno PA-C [Physician Production Illustrator] - 10/23/23 1:00 pm Diet: Regular Addtl Attending Provider Instructions: Post-Surgical ~Discharge Instructions Activity Recommendations: - lifting limitation: (20 pounds for 2 weeks), - exercise/sex/sports limit: (nonstrenuous for 2 weeks), - driving or machine use limit: (none for 1 week or until pain free and no longer taking narcotic pain medication), - Shower/bathe limit: (may shower beginning tomorrow) Diet: - Resume previous diet SPECIAL CARE INSTRUCTIONS: - May shower in 24 hours. Let water run over area and pat dry. No submerging underwater for 2 weeks. - Leave surgical glue on incisions. Do not pick at this - If you go home with surgical drain, keep record of output and color. You are scheduled for nurse visit on Monday at 1 pm at [facility] for drain removal. - Call the surgeon's office with any questions or concerns - - (ex. temperature higher than 101 degrees F, excessive bleeding or pain). MEDICATIONS: - Resume previous medications unless instructed otherwise by your surgeon. - May alternate extra strength Tylenol and Ibuprofen as needed for mild to moderate pain -650 mg Tylenol every 6 hours as needed - Ibuprofen 600 mg every 6 hours as needed (take with food) - Percocet 1 every 6 hours, as needed for moderate to severe pain - Recommend daily stool softener (Colace) while taking narcotic pain medication to prevent constipation or straining. Drink plenty of water daily. FOLLOW UP VISIT: - If not already scheduled, please call the office to schedule a two week follow-up appointment. Office number Pending Studies at Discharge: Yes (gallbladder pathology, will be reviewed at postop visit) Stand-Alone Forms: [facility], Pain - Opioid Pain Management, Smoking Cessation Medications and DC Order Prescriptions: New oxycodone-acetaminophen [Percocet] 5-325 mg tablet 1 tab PO Q6H PRN (Reason: pain) Qty: 10 0RF Continued multivitamin Tablet 1 tab PO DAILY escitalopram oxalate 10 mg tablet 10 mg PO QAM Discharge Orders: Discharge Order (Routine); Ordered 10/20/23 Ordered By: Myrna Sellers/Other Patient Handouts: Niles Mejía Drain Tube Dc, Post Op Drain Emptying Steps Admission Data Admit Date/Time: 10/18/23 09:50 Attending Provider: Nakul De Guzman Admit Provider: Nakul De Guzman Primary Care Provider: Andrew Max Other Interventions: Discharge Summary Assessment (RN) Last Done: 10/20/23 18:04
== END 2023-10-20 20:13 | disposition home or self-care (01) ==
LOC: ED 00:40 → EDINP 00:40 → 3W 16:18